=== PATIENT | male | born 1960 | race Caucasian/White ===

== ENCOUNTER 2018-11-30 11:24 | Inpatient (IN) ==
--- NOTE | 2018-11-30 11:43 | Emergency Department Note ---
Entered by Adriana Thorpe acting as a scribe for Randy Moore MD History of Present Illness General Chief complaint: Weakness Stated complaint: weakness Time Seen by Provider: 11/30/18 11:35 Source: patient History of Present Illness Provider complaint: weakness Onset (ago): day(s) (several days) Location: head Severity: similar to prior episodes Pain Consistency: + other (+persistent) Exacerbated By: + other (standing up) Associated symptoms: + nausea/vomiting and + other (+abdominal bloating, +diarrhea, +dark stool); no chest pain and no shortness of breath The patient is a 58 year old male who presents to the Emergency Room with complaints of persistent weakness for the past several days. He notes that prior to arrival he stood up and felt weak and dizzy. He notes that he drank one beer today and multiple energy drinks. He reports that he had episodes of nausea, vomiting, and diarrhea yesterday. He states that his last bowel movement was this morning and reports that he had dark stools. He reports that he felt bloated today, he denies any previous stomach issues. He denies any chest pain, headache, or shortness of breath. The patient states that standing up worsens his symptoms. He mentions that he is diabetic. Per the patients friend, the patient has a history of quadruple bypass. Home Medications Home Medications Medication Instructions Recorded Confirmed Type aspirin [Aspir-81] 81 mg PO DAILY 11/30/18 11/30/18 History linagliptin 5 mg PO DAILY 11/30/18 11/30/18 History lisinopril 10 mg PO DAILY 11/30/18 11/30/18 History metformin 1,000 mg PO BID 11/30/18 11/30/18 History metoprolol succinate 25 mg PO DAILY 11/30/18 11/30/18 History Allergies Allergy/AdvReac Type Severity Reaction Status Date / Time No Known Allergies Allergy Unverified 11/30/18 11:45 Past Med/Surg History Surgical History History of quadruple bypass (Acute) Family History Grandfather Myocardial infarction Father TIA (transient ischemic attack) Social History (Reviewed 11/30/18 @ 14:20 by Adriana Huertas Direct Customer Service Representative Required: No Beliefs That Will Affect Care: None Current Living Situation: Significant Other Feels Safe at Home: Yes Smoking Status: Former smoker Hx Alcohol Use: Yes Hx Substance Use: No Review of Systems See HPI for pertinent positives & negatives. and A total of 10 systems reviewed and were otherwise negative Physical Exam Vital Signs Vital Signs - 24 hr 11/30/18 11:30 11/30/18 11:32 11/30/18 11:35 Temperature 36.8 C Temperature Source Oral Sepsis Recent Fever Within 48 Hours No Sepsis New/Unexplained Change in Mental Status No Sepsis Action Taken by Nursing No Action Required Pulse Rate 90 91 H 91 H Pulse Rate from SpO2 Sensor 92 H 95 H Pulse Rhythm Regular Pulse Strength Normal Respiratory Rate 22 18 20 Respiratory Effort / Characteristics Non-Labored Spontaneous Respiratory Depth Normal Respiratory Pattern Regular Blood Pressure 97/60 L 102/60 Blood Pressure Mean 72 74 Blood Pressure Position Lying Pulse Oximetry 100 100 98 Oxygen Delivery Method Room Air Room Air Room Air 11/30/18 12:06 11/30/18 12:30 11/30/18 13:00 Temperature Temperature Source Sepsis Recent Fever Within 48 Hours Sepsis New/Unexplained Change in Mental Status Sepsis Action Taken by Nursing Pulse Rate 84 87 84 Pulse Rate from SpO2 Sensor 87 84 Pulse Rhythm Pulse Strength Respiratory Rate 25 H 18 16 Respiratory Effort / Characteristics Respiratory Depth Respiratory Pattern Blood Pressure 94/55 L Blood Pressure Mean 68 Blood Pressure Position Pulse Oximetry 99 99 Oxygen Delivery Method Room Air Room Air 11/30/18 13:30 11/30/18 14:00 Temperature Temperature Source Sepsis Recent Fever Within 48 Hours Sepsis New/Unexplained Change in Mental Status Sepsis Action Taken by Nursing Pulse Rate 85 89 Pulse Rate from SpO2 Sensor Pulse Rhythm Pulse Strength Respiratory Rate 21 19 Respiratory Effort / Characteristics Respiratory Depth Respiratory Pattern Blood Pressure 113/61 Blood Pressure Mean 78 Blood Pressure Position Pulse Oximetry 96 Oxygen Delivery Method Room Air General: Non-ill appearing middle-aged male in no acute distress. HEENT: Normal cephalic atraumatic. Pupils are equal round and reactive to light. Extraocular movements are intact. Oropharynx is pink with moist mucous membranes. No swelling of the mouth lips or tongue. Neck: Supple with a midline trachea. No meningeal signs or stiffness, no JVD or bruits. No Stridor. Chest: Clear to auscultation bilaterally. No wheezes or rhonchi. No increased work of breathing. Heart: regular rate and rhythm. Abdomen: Soft nontender, nondistended without rebound guarding or rigidity. Rectal: Normal external exam, melanotic stool which was guaiac positive. Extremities: No cyanosis clubbing or edema. No calf tenderness or asymmetry Spine/Back. Non tender to palpation. No CVA tenderness Skin: Good turgor without rashes. Neurologic exam: Cranial nerves two through 12 are intact. Motor and sensation are intact and symmetrical throughout. Course 1128: The patient was evaluated in room C9, and a complete history and physical examination were performed. 1228: I reevaluated the patient and updated him in his results, the patient appears comfortable. He states that he feels okay. The patient does not appear as pale, we are currently waiting on labs. 1249: I discussed the patient's case with Dr. Maggie Rose- [facility] Hospitalist, she will accept the patient for further evaluation. 1255: I reevaluated the patient, he consented for blood transfusion. Administered Medications Discontinued Medications Sodium Chloride (Nss 1000ml) 1,000 mls @ 999 mls/hr IV .[id number] JAXSON Stop: 11/30/18 12:45 Last Infusion: 11/30/18 12:48 Dose: 0 mls/hr Documented by: [id number] Admin: 11/30/18 11:47 Dose: 999 mls/hr Documented by: [id number] Pantoprazole Sodium 80 mg/ (Dextrose) 120 mls @ 480 mls/hr IV TODAY@1245 JAXSON Stop: 11/30/18 12:59 Last Infusion: 11/30/18 13:16 Dose: 0 mls/hr Documented by: [id number] Admin: 11/30/18 13:01 Dose: 480 mls/hr Documented by: [id number] Pantoprazole Sodium 40 mg/ (Dextrose) 100 mls @ 20 mls/hr IV Q5H JAXSON Stop: 11/30/18 17:59 Last Infusion: 11/30/18 15:38 Dose: 0 mls/hr Documented by: [id number] Admin: 11/30/18 13:18 Dose: 20 mls/hr Documented by: [id number] Magnesium Sulfate/Dextrose (Magnesium Sulfate / D5w) 1 gm in 100 mls @ 100 mls/hr IV Q1H JAXSON Stop: 11/30/18 14:29 Last Infusion: 11/30/18 15:14 Dose: 0 mls/hr Documented by: [id number] Admin: 11/30/18 14:10 Dose: 100 mls/hr Documented by: [id number] Infusion: 11/30/18 14:02 Dose: 0 mls/hr Documented by: [id number] Admin: 11/30/18 13:02 Dose: 100 mls/hr Documented by: [id number] Medical Decision Making Differential Diagnosis Differential diagnoses include, but are not limited to dizziness, GI bleed, cardiac disease, arrhythmia, electrolyte and metabolic abnormality, and intoxication. Medical Records Attestation: I reviewed the patient's medical records. Home Medications Current Medication List: was personally reviewed by me Laboratory Data Attestation: I reviewed the patient's lab results. Result diagrams: 11/30/18 11:35 11/30/18 11:35 Lab Results 11/30/18 11/30/18 11/30/18 Range/Units 11:35 11:35 11:35 WBC 7.95 (4.8-10.8) K/uL RBC 2.51 L (4.7-6.1) M/uL Hgb 7.7 L (14.0-18.0) g/dL Hct 23.5 L (42-52) % MCV 93.6 (80-100) fL MCH 30.7 (25-34) pg MCHC 32.8 (32-36) g/dL RDW Std Deviation 46.2 (36.4-46.3) fL RDW Coeff of Anthony 13.5 (11.5-14.5) % Plt Count 76 L (130-400) K/uL MPV 12.9 H (7.4-10.4) fL Immature Gran % (Auto) 0.3 % Neut % (Auto) 71.8 % Lymph % (Auto) 17.0 % [place] % (Auto) 9.9 % Eos % (Auto) 0.6 % Baso % (Auto) 0.4 % Immature Gran # (Auto) 0.02 (0.00-0.02) K/uL Neut # (Auto) 5.71 (1.4-6.5) K/uL Lymph # (Auto) 1.35 (1.2-3.4) K/uL [place] # (Auto) 0.79 H (0.11-0.59) K/uL Eos # (Auto) 0.05 (0-0.5) K/uL Baso # (Auto) 0.03 (0-0.2) K/uL Platelet Estimate Decreased L (Normal) PT Cancelled INR Cancelled APTT Cancelled PTT Ratio Cancelled Sodium 143 (136-145) mmol/L Potassium 4.1 (3.5-5.1) mmol/L Chloride 110 H (98-107) mmol/L Carbon Dioxide 22 (21-32) mmol/L Anion Gap 11.0 (3-11) BUN 59 H (7-18) mg/dl Creatinine 1.21 (0.6-1.4) mg/dl Est Cr Clr Drug Dosing 67.9 ml/min Est GFR ( Amer) 75.5 Est GFR (Non-Af Amer) 65.1 BUN/Creatinine Ratio 48.7 H (10-20) Glucose 283 H (70-99) mg/dl Calcium 8.9 (8.5-10.1) mg/dl Magnesium 1.4 L (1.8-2.4) mg/dl Total Bilirubin 0.6 (0.2-1) mg/dl AST 32 (15-37) U/L ALT 16 (12-78) U/L Alkaline Phosphatase 88 (45-117) U/L Troponin I < 0.015 (0-0.045) ng/ml Total Protein 5.9 L (6.4-8.2) gm/dl Albumin 2.6 L (3.4-5.0) gm/dl Globulin 3.2 (2.5-4.0) gm/dl Albumin/Globulin Ratio 0.8 L (0.9-2) TSH 1.560 (0.300-4.500) uIu/ml Ethyl Alcohol mg/dL (0-3) mg/dl Blood Type Blood Type Recheck Antibody Screen Crossmatch 11/30/18 11/30/18 11/30/18 Range/Units 11:40 11:49 12:38 WBC (4.8-10.8) K/uL RBC (4.7-6.1) M/uL Hgb (14.0-18.0) g/dL Hct (42-52) % MCV (80-100) fL MCH (25-34) pg MCHC (32-36) g/dL RDW Std Deviation (36.4-46.3) fL RDW Coeff of Anthony (11.5-14.5) % Plt Count (130-400) K/uL MPV (7.4-10.4) fL Immature Gran % (Auto) % Neut % (Auto) % Lymph % (Auto) % [place] % (Auto) % Eos % (Auto) % Baso % (Auto) % Immature Gran # (Auto) (0.00-0.02) K/uL Neut # (Auto) (1.4-6.5) K/uL Lymph # (Auto) (1.2-3.4) K/uL [place] # (Auto) (0.11-0.59) K/uL Eos # (Auto) (0-0.5) K/uL Baso # (Auto) (0-0.2) K/uL Platelet Estimate (Normal) PT 13.6 H INR 1.4 H APTT 25.9 PTT Ratio 1.0 Sodium (136-145) mmol/L Potassium (3.5-5.1) mmol/L Chloride (98-107) mmol/L Carbon Dioxide (21-32) mmol/L Anion Gap (3-11) BUN (7-18) mg/dl Creatinine (0.6-1.4) mg/dl Est Cr Clr Drug Dosing ml/min Est GFR ( Amer) Est GFR (Non-Af Amer) BUN/Creatinine Ratio (10-20) Glucose (70-99) mg/dl Calcium (8.5-10.1) mg/dl Magnesium (1.8-2.4) mg/dl Total Bilirubin (0.2-1) mg/dl AST (15-37) U/L ALT (12-78) U/L Alkaline Phosphatase (45-117) U/L Troponin I (0-0.045) ng/ml Total Protein (6.4-8.2) gm/dl Albumin (3.4-5.0) gm/dl Globulin (2.5-4.0) gm/dl Albumin/Globulin Ratio (0.9-2) TSH (0.300-4.500) uIu/ml Ethyl Alcohol mg/dL < 3.0 (0-3) mg/dl Blood Type O Positive Blood Type Recheck Antibody Screen NEGATIVE Crossmatch See Detail 11/30/18 Range/Units 14:07 WBC (4.8-10.8) K/uL RBC (4.7-6.1) M/uL Hgb (14.0-18.0) g/dL Hct (42-52) % MCV (80-100) fL MCH (25-34) pg MCHC (32-36) g/dL RDW Std Deviation (36.4-46.3) fL RDW Coeff of Anthony (11.5-14.5) % Plt Count (130-400) K/uL MPV (7.4-10.4) fL Immature Gran % (Auto) % Neut % (Auto) % Lymph % (Auto) % [place] % (Auto) % Eos % (Auto) % Baso % (Auto) % Immature Gran # (Auto) (0.00-0.02) K/uL Neut # (Auto) (1.4-6.5) K/uL Lymph # (Auto) (1.2-3.4) K/uL [place] # (Auto) (0.11-0.59) K/uL Eos # (Auto) (0-0.5) K/uL Baso # (Auto) (0-0.2) K/uL Platelet Estimate (Normal) PT INR APTT PTT Ratio Sodium (136-145) mmol/L Potassium (3.5-5.1) mmol/L Chloride (98-107) mmol/L Carbon Dioxide (21-32) mmol/L Anion Gap (3-11) BUN (7-18) mg/dl Creatinine (0.6-1.4) mg/dl Est Cr Clr Drug Dosing ml/min Est GFR ( Amer) Est GFR (Non-Af Amer) BUN/Creatinine Ratio (10-20) Glucose (70-99) mg/dl Calcium (8.5-10.1) mg/dl Magnesium (1.8-2.4) mg/dl Total Bilirubin (0.2-1) mg/dl AST (15-37) U/L ALT (12-78) U/L Alkaline Phosphatase (45-117) U/L Troponin I (0-0.045) ng/ml Total Protein (6.4-8.2) gm/dl Albumin (3.4-5.0) gm/dl Globulin (2.5-4.0) gm/dl Albumin/Globulin Ratio (0.9-2) TSH (0.300-4.500) uIu/ml Ethyl Alcohol mg/dL (0-3) mg/dl Blood Type Blood Type Recheck O Positive Antibody Screen Crossmatch Imaging Data Radiologist's Impression: Radiology results as stated below per my review and the radiologist's interpretation: XR chest 1V portable CLINICAL HISTORY: 58 years-old Male presenting with weakness. TECHNIQUE: Portable upright AP view of the chest was obtained. COMPARISON: None. FINDINGS: Median sternotomy wires and scattered mediastinal surgical clips. Atherosclerosis of the aortic arch. Top normal cardiac size. No focal opacity. No large effusion or pneumothorax. Osseous structures normal. Upper abdomen normal. IMPRESSION: 1. No acute cardiopulmonary disease. Electronically signed by: Mateo Awad M.D. 11/30/2018 12:[address] head/brain wo con CLINICAL HISTORY: 58 years-old Male presenting with syncope. TECHNIQUE: Multidetector CT imaging of the head was performed without the use of intravenous contrast. IV contrast: None. One or more dose lowering techniques were used consistent with the principles of ALARA (as low as reasonably achievable), including automatic exposure control, mA or kV adjustment to individual patient size, and/or use of iterative reconstruction. COMPARISON: None. CT DOSE (mGy.cm): The estimated cumulative dose is 537.48 mGy.cm. FINDINGS: Director [employer] topogram: Unremarkable. Ventricles and sulci normal in size. Hyperdensity in the left caudate head. This would be an atypical location for calcification in the absence of other basal ganglia calcifications and given the asymmetry. Periventricular and subcortical white matter hypoattenuation, nonspecific but likely indicative of chronic small vessel ischemic change.d No acute territorial infarct. No mass effect or midline shift. No extra-axial fluid collection. Paranasal sinuses and mastoid air cells clear. Calvarium intact. IMPRESSION: 1. Indeterminate hyperdensity in the left caudate head notably asymmetric to the right and without accompanying basal ganglia calcifications. This is an atypical site of senescent calcification, and the patient's younger age may argue against this etiology. The favored differential consideration is intraparenchymal hemorrhage. Recommend noncontrast MR brain for potentially better delineation if this truly represents hemorrhage. The report will be called/faxed according to standard departmental protocol for a critical finding. Electronically signed by: Mateo Awad M.D. 11/30/2018 12:13 PM ECG Data Attestation: I personally reviewed and interpreted this ECG as follows: Indication: weakness Rate (beats per minute): 87 Rhythm: normal sinus Findings: + other (non-specific T wave abnormality) and + nonspecific-ST abn Comparison ECG Date: no prior available Blood Pressure Blood Pressure Findings: Normal blood pressure Blood Pressure Disposition: did not require urgent referral MDM Narrative This patient comes in after being sent over from the football game after complaining of feeling weakness with standing. He says he is felt off for couple days. he had nausea vomiting diarrhea yesterday feels a stool may have been dark. He believes that he is on a blood thinner but does not know which o ne he says it is not Coumadin. He denies any chest pain or shortness of breath. He has no focal numbness weakness on exam, he did drink one beer today. There is been no trauma or injury. He does have a complex medical history with diabetes and cardiac disease with a bypass. I did a rectal exam and he did have melanotic stool which was guaiac positive. He was typed and screened. His hemoglobin came back at 7.7. I consented him for blood product transfusion he agreed. I talked to him for a long time and clearly explained the risks and benefits. I do think he definitely needs a transfusion given his low number and his symptoms. EKG does not suggest any definite ischemic changes. Chest x-ray is unremarkable. He has a small hyperdensity on his CT of his head which I think is most likely artifactual but it could be a small punctate hemorrhage it does not seem to fit with his symptoms. Dr. Rose is going to order an MRI to further clarify this. The patient did receive IV Protonix bolus and drip for his GI bleed given the fact that his melanotic is most likely upper. He is also found to be hypomagnesia make and was given 2 g of magnesium IV. He was reassessed frequently and has improved his hemodynamics he seems to be doing better and is getting a blood transfusion. He will be admitted for further treatment and evaluation. Impression & Plan GI (gastrointestinal bleed), Dizziness, Hypomagnesemia, Hx of CABG, Abnormal CT of the head, DM type 2 (diabetes mellitus, type 2) Critical Care Time Critical Care Time: Yes Due to the patient's hypotension and GI bleed and need for frequent reassessment, as well as need for other IV medications including IV Protonix and IV magnesium as well as frequent monitoring, I have personally spent greater than 45 minutes of critical care time in the direct management of this patient. This includes bedside care, interpretation of diagnostic studies, and testing, discussion with consultants, patient, and family members, and other required patient management activities. This 45 minutes is in excess of all separately billable procedures. Discharge Plan Visit Data *Final* Discharge Date/Time: 11/30/18 14:42 Chief Complaint: Weakness Stated Complaint: weakness ED Provider: Randy Moore Discharge Problem: GI (gastrointestinal bleed), Dizziness, Hypomagnesemia, Hx of CABG, Abnormal CT of the head, DM type 2 (diabetes mellitus, type 2) Patient Disposition: Admitted As Inpatient Discharge Instructions Interventions: ED Discharge Assessment Last Done: 11/30/18 14:42 Discharge Problem: GI (gastrointestinal bleed) Qualifiers: GI bleed type/associated pathology: melena Qualified Code(s): K92.1 - Melena DM type 2 (diabetes mellitus, type 2) 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 I confirm that the note above accurately reflects all work, treatment, procedures, and medical decision making performed by me.
[2018-11-30] MEDS ORDERED: SODIUM CHLORIDE 0.9% 1000ML 1,000 ML IV SCH (11:45)
--- NOTE | 2018-11-30 12:15 | CT Scan Report ---
CT head/brain wo con CLINICAL HISTORY: 58 years-old Male presenting with syncope. TECHNIQUE: Multidetector CT imaging of the head was performed without the use of intravenous contrast . IV contrast: None. One or more dose lowering techniques were used consistent with the principles of ALARA (as low as reasonably achievable), including automatic exposure control, mA or kV adjustment t o individual patient size, and/or use of iterative reconstruction. COMPARISON: None. CT DOSE (mGy.cm): The estimated cumulative dose is 537.48 mGy.cm. FINDINGS: Bar Assistant topogram: Unremarkable. Ventricles and sulci normal in size. Hyperdensity in the left caudate head. This would be an atypical location for calcification in the absence of other basal ganglia calcifications and given the asymme try. Periventricular and subcortical white matter hypoattenuation, nonspecific but likely indicative of chronic small vessel ischemic change.d No acute territorial infarct. No mass effect or midline christy ft. No extra-axial fluid collection. Paranasal sinuses and mastoid air cells clear. Calvarium intact. IMPRESSION: 1. Indeterminate hyperdensity in the left caudate head notably asymmetric to the right and without a ccompanying basal ganglia calcifications. This is an atypical site of senescent calcification, and th e patient's younger age may argue against this etiology. The favored differential consideration is in traparenchymal hemorrhage. Recommend noncontrast MR brain for potentially better delineation if this truly represents hemorrhage. The report will be called/faxed according to standard departmental protocol for a critical finding. Electronically signed by: Mateo Awad M.D. 11/30/2018 12:13 PM
--- NOTE | 2018-11-30 12:25 | XRay Report ---
XR chest 1V portable CLINICAL HISTORY: 58 years-old Male presenting with weakness. TECHNIQUE: Portable upright AP view of the chest was obtained. COMPARISON: None. FINDINGS: Median sternotomy wires and scattered mediastinal surgical clips. Atherosclerosis of the aortic arch. Top normal cardiac size. No focal opacity. No large effusion or pneumothorax. Osseous structures nor mal. Upper abdomen normal. IMPRESSION: 1. No acute cardiopulmonary disease. Electronically signed by: Mateo Awad M.D. 11/30/2018 12:23 PM
[2018-11-30 12:29] LABS: Alanine Aminotransferase 16 U/L (12-78); Albumin Level 2.6 gm/dl (3.4-5.0); Aspartate Aminotransferase 32 U/L (15-37); BUN Creatinine Ratio 48.7 (10-20); Blood Urea Nitrogen 59 mg/dl (7-18); Calcium 8.9 mg/dl (8.5-10.1); Carbon Dioxide 22 mmol/L (21-32); Chloride 110 mmol/L (98-107); Creatinine Clr Calc Pharmacy 67.9 ml/min; Est GFR (African American) 75.5; Est GFR (Non-African American) 65.1; Glucose 283 mg/dl (70-99); Magnesium 1.4 mg/dl (1.8-2.4); Potassium 4.1 mmol/L (3.5-5.1); Sodium 143 mmol/L (136-145)
[2018-11-30 12:40] LABS: Albumin Globulin Ratio 0.8 (0.9-2); Alkaline Phosphatase 88 U/L (45-117); Bilirubin,Total 0.6 mg/dl (0.2-1); Globulin 3.2 gm/dl (2.5-4.0); Total Protein 5.9 gm/dl (6.4-8.2); Troponin I < 0.015 ng/ml (0-0.045)
[2018-11-30 12:43] LABS: Basophils # (auto) 0.03 K/uL (0-0.2); Basophils % (auto) 0.4 %; Eosinophils # (auto) 0.05 K/uL (0-0.5); Eosinophils % (auto) 0.6 %; Hematocrit (blood only) 23.5 % (42-52); Hemoglobin 7.7 g/dL (14.0-18.0); Immature Granulocytes # (auto) 0.02 K/uL (0.00-0.02); Immature Granulocytes % (auto) 0.3 %; Lymphocytes # (auto) 1.35 K/uL (1.2-3.4); Mean Corpuscular Hgb Conc 32.8 g/dL (32-36); Mean Corpuscular Volume 93.6 fL (80-100); Mean Platelet Volume 12.9 fL (7.4-10.4); Monocytes # (auto) 0.79 K/uL (0.11-0.59); Monocytes % (auto) 9.9 %; Neutrophils # (auto) 5.71 K/uL (1.4-6.5); Neutrophils % (auto) 71.8 %; Platelet Count 76 K/uL (130-400); Platelet Estimate Decreased (Normal); RDW Coefficient of Variation 13.5 % (11.5-14.5); RDW Standard Deviation 46.2 fL (36.4-46.3); Red Blood Count 2.51 M/uL (4.7-6.1); White Blood Count 7.95 K/uL (4.8-10.8)
[2018-11-30] MEDS ORDERED: PANTOprazole 80 MG in DEXTROSE 5% 100 ML IV SCH (12:45)
[2018-11-30] MEDS ORDERED: SODIUM CHLORIDE 0.9% 250 ML IV PRN ×2 (12:55→13:21)
[2018-11-30 13:00] LABS: INR 1.4 (0.9-1.1); Partial Thromboplastin Time 25.9 Seconds (21.0-31.0); Prothrombin Time 13.6 Seconds (9.0-12.0)
[2018-11-30] MEDS ORDERED: PANTOprazole 40 MG in DEXTROSE 5% 100 ML IV SCH (13:00)
[2018-11-30] MEDS: MAGNESIUM SULFATE / D5W 1 GM/100 ML BAG IV SCH ×2 (13:02→14:10)
--- NOTE | 2018-11-30 14:23 | History & Physical Report ---
Date of Service November 30, 2018 Assessment & Plan (1) GIB (gastrointestinal bleeding): Heme + in the ED Hb 7.7 on admission, monitor Awaiting transfusion Protonix, IVF GI c/s pending Hx of c-scope with outside providers, HIM requested (2) Hypomagnesemia: Replaced in the ED, monitor (3) Abnormal CT of the head: As noted MRI pending (4) HTN (hypertension): HypoTN in the ED, holding home meds (5) DM type 2 (diabetes mellitus, type 2): PO home meds only, holding for now SSI PRN A1c pending (6) Hx of CABG: Hx of aspirin 81mg only Holding for now (7) DVT prophylaxis: SCDs given above History of Present Illness Primary Care Provider: NO PCP 58 y/o M c/o weakness. Pt states that he was weak and lightheaded yesterday a few times, but it resolved. He also had a few episodes of n/v yesterday. He came to [place] today for the [employer] game. As they were walking into the field he suddenly felt much more weak and lightheaded and states that the grass "turned orange". He could not keep his head up and could not continue walking. When this did not clear, he came to the ED. Pt states he had a bowel movement yesterday and today with dark black stools. He had no noticed this prior. It was a regular, formed stool. No diarrha. He has not had abd pain, but he does feel bloated today. He states that his abd is usually fairly flat. He has no prior hx of similar sx. No BRBPR or in his emesis yesterday.Pt denies fever, SOB, chest pain, LE pain or swelling. Pt takes aspirin 81mg regularly due to hx of CABG 5 yrs ago. He states he did hold this a few weeks ago due to recurring nosebleeds and had just restarted this recently after the nosebleeds resolved. No unusual bruising or bleeding otherwise. Pt states he does feel a bit improved s/p IVF and protonix, Mg in the ED. He is awaiting PRBC transfusion. Pt states he has had 2-3 c-scopes. He was noted to have polyps on his initial c- scope and so has had an increased interval for screening. No dx of cancer. His last one was roughly 2 years ago. 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 Allergies Allergy/AdvReac Type Severity Reaction Status Date / Time No Known Allergies Allergy Unverified 11/30/18 11:45 Home Medications Home Medications Medication Instructions Recorded Confirmed Type aspirin [Aspir-81] 81 mg PO DAILY 11/30/18 11/30/18 History linagliptin 5 mg PO DAILY 11/30/18 11/30/18 History lisinopril 10 mg PO DAILY 11/30/18 11/30/18 History metformin 1,000 mg PO BID 11/30/18 11/30/18 History metoprolol succinate 25 mg PO DAILY 11/30/18 11/30/18 History Past Med/Surg History Surgical History History of quadruple bypass (Acute) Family History Grandfather Myocardial infarction Father TIA (transient ischemic attack) Social History Feels Safe at Home: Yes Smoking Status: Former smoker Number of Years Since Quit: 5 ; Hx Alcohol Use: Yes (2-3 beers a 1-2 nights a week) Hx Substance Use: No Review of Systems Review of Systems: Pertinent positives and negatives reviewed in HPI--all others negative Physical Exam Constitutional: WD/WN, vitals as above Eyes: normal visual richardson by confrontation and + anicteric sclerae Neck: normal visual inspection and trachea midline Respiratory: normal respiratory effort, lungs clear to auscultation Cardiovascular: Rate/Rhythm: regular rate and regular rhythm Gastrointestinal (Abdomen): Inspection/Auscultation: abdomen not distended Percussion/Palpation: abdomen soft; abdomen nontender Musculoskeletal: Head/Neck/Chest: normocephalic and head atraumatic negative for edema, peripheral pulses intact Skin: no rashes, warm and dry + pallor Neurologic: awake; not confused Speech / Cognition: normal speech Psychiatric: A+Ox3, euthymic affect Results & Data Vital Signs (Past 12 Hours) Vital Signs Temp Pulse Resp BP Pulse Ox 11/30/18 13:00 84 16 99 11/30/18 12:30 87 18 94/55 L 99 11/30/18 12:06 84 25 H 11/30/18 11:35 36.8 C 91 H 20 102/60 98 11/30/18 11:32 91 H 18 100 11/30/18 11:30 90 22 97/60 L 100 Diagnostic Findings CXR: neg for acute CT head: ?? intraparenchymal hemorrhage, recs for MRI Code Status & VTE Plan Code Status Full code VTE Prophylaxis Plan VTE Prophylaxis will be ordered: Yes PG Care Time/CCT Total # of Minutes Spent Total Time Spent with Patient: Total time spent is greater than 50% in coordination of care (as documented) at patient's floor/unit and/or counseling patient:
[2018-11-30] MEDS ORDERED: DEXTROSE 50% 50 ML SYRINGE IV PRN (15:12)
[2018-11-30] MEDS ORDERED: GLUCAGON FOR INJ 1 MG VIAL SQ PRN (15:12)
[2018-11-30] MEDS ORDERED: ONDANSETRON INJ 2 MG/ML 2 ML VIAL IV PRN (15:12)
[2018-11-30] MEDS ORDERED: GLUCOSE 40% GEL 15 GM TUBE PO PRN (15:12)
[2018-11-30] MEDS ORDERED: CARBOHYDRATES FOR HYPOGLYCEMIA PO PRN (15:12)
[2018-11-30] MEDS ORDERED: GLUCOSE 10 TABS/TUBE PO PRN (15:12)
[2018-11-30] MEDS ORDERED: ACETAMINOPHEN 325 MG TAB PO PRN (15:12)
[2018-11-30] MEDS ORDERED: MAGNESIUM HYDROXIDE SUSP 30 ML UDC PO PRN (15:12)
[2018-11-30] MEDS: SODIUM CHLORIDE 0.45 % 1,000 ML IV SCH (17:58)
[2018-11-30] MEDS: INSULIN ASPART 100 UNITS/ML 3 ML PEN SC SCH (18:04)
--- NOTE | 2018-11-30 19:16 | Magnetic Resonance Report ---
MR brain wo con CLINICAL HISTORY: 58 years-old Male presenting with abn CT, dizziness, weakness, vision changes. TECHNIQUE: Multisequence, multiplanar MR imaging of the brain was performed without the use of intrav enous contrast. IV contrast: None. COMPARISON: None. FINDINGS: Localizer images: Unremarkable. Bone marrow signal intensity within the calvarium within normal limits. Normal midline sagittal structures. Ventricles and sulci normal in size. No mass effect or midline sh ift. No restricted diffusion or hemorrhage. Scattered foci of periventricular and subcortical white m atter T2/FLAIR hyperintensity, nonspecific. No extra-axial fluid collection. T2 skull base flow voids preserved. IMPRESSION: 1. Scattered foci of periventricular and subcortical white matter T2/FLAIR hyperintensity, nonspecif ic. This could be seen in the setting of chronic small vessel ischemic change, demyelinating disease, and other etiologies. Electronically signed by: Mateo Awad M.D. 11/30/2018 7:13 PM
[2018-11-30 19:33] LABS: Hematocrit (blood only) 27.8 % (42-52); Hemoglobin 9.2 g/dL (14.0-18.0)
[2018-11-30 20:21] LABS: Appearance Urine Clear (Clear); Bilirubin Urine Negative (Negative); Blood Urine Negative (Negative); Color Urine Yellow; Glucose Urine UA 3+ (Negative); Ketones Urine Trace (Negative); Leukocyte Esterase Urine Negative (Negative); Nitrite Urine Negative (Negative); Protein Urine Negative (Negative); Specific Gravity Urine 1.023 (1.000-1.030); Urobilinogen Urine Negative (Negative); pH Urine 5.5 (4.5-7.5)
[2018-11-30] MEDS: PANTOprazole 40 MG in SYRINGE 0 ML IV SCH (20:34)
[2018-12-01] MEDS: INSULIN ASPART 100 UNITS/ML 3 ML PEN SC SCH ×5 (00:59→23:58)
[2018-12-01] MEDS: SODIUM CHLORIDE 0.45 % 1,000 ML IV SCH ×4 (02:38→19:54)
[2018-12-01 06:55] LABS: Basophils # (auto) 0.02 K/uL (0-0.2); Basophils % (auto) 0.3 %; Eosinophils # (auto) 0.14 K/uL (0-0.5); Eosinophils % (auto) 2.4 %; Hematocrit (blood only) 23.4 % (42-52); Hemoglobin 7.9 g/dL (14.0-18.0); Immature Granulocytes # (auto) 0.01 K/uL (0.00-0.02); Immature Granulocytes % (auto) 0.2 %; Lymphocytes # (auto) 1.46 K/uL (1.2-3.4); Lymphocytes % (auto) 25.4 %; Mean Corpuscular Hgb Conc 33.8 g/dL (32-36); Mean Corpuscular Volume 89.3 fL (80-100); Mean Platelet Volume 12.3 fL (7.4-10.4); Monocytes # (auto) 0.56 K/uL (0.11-0.59); Monocytes % (auto) 9.8 %; Neutrophils # (auto) 3.55 K/uL (1.4-6.5); Neutrophils % (auto) 61.9 %; Platelet Count 58 K/uL (130-400); RDW Coefficient of Variation 14.8 % (11.5-14.5); RDW Standard Deviation 48.4 fL (36.4-46.3); Red Blood Count 2.62 M/uL (4.7-6.1); White Blood Count 5.74 K/uL (4.8-10.8)
[2018-12-01 07:29] LABS: BUN Creatinine Ratio 39.2 (10-20); Calcium 7.6 mg/dl (8.5-10.1); Creatinine Clr Calc Pharmacy 94.4 ml/min; Est GFR (African American) 109.5; Est GFR (Non-African American) 94.5; Magnesium 1.5 mg/dl (1.8-2.4); Phosphorus 2.4 mg/dl (2.5-4.9); Potassium 3.8 mmol/L (3.5-5.1)
[2018-12-01] MEDS: PANTOprazole 40 MG in SYRINGE 0 ML IV SCH ×2 (08:06→19:54)
[2018-12-01] MEDS: MAGNESIUM SULFATE / D5W 1 GM/100 ML BAG IV SCH ×2 (09:54→10:49)
[2018-12-01 12:38] LABS: Hematocrit (blood only) 24.6 % (42-52); Hemoglobin 8.3 g/dL (14.0-18.0)
--- NOTE | 2018-12-01 13:02 | Family Medicine Progress Note ---
Date of Service December 01, 2018 Assessment & Plan (1) GI (gastrointestinal bleed): Patient is a 58 year old male with PMHx DM2, HTN, and CABG x5 presenting initially with weakness and dizziness. Gastrointestinal Bleed -DHARMESH in ED revealed Melanotic stool that was Heme + -Hemoglobin on admission was 7.7 and patient was severely symptomatic with weakness and dizziness -Pt was transfused 1 unit of PRBC in the ED and noted vast improvement in symptoms. -Repeat Hgb was 9.2. -Hgb this AM was 7.9, patient currently asymptomatic. H&H ordered for noon today - 8.3, continue to monitor. -Pantoprazole 40mg BID IV for gastroprotection since bleed is suspected. -GI Consulted, appreciate recs. Hypomagnesemia -Patient initially presented with Mag 1.4 in ED, was given 2g in ED. -Mag this AM is 1.5 -Another 2g of Mag ordered for this AM, will continue to monitor. DM2 -Patient takes Linagliptin and Metformin at home -Will hold medications since NPO -Sliding Scale for management. HTN -Patient takes Lisinopril and Metformin at home -Currently on hold due to patient's soft pressures since admission. Dizziness -Likely secondary to Anemia on initial presentation -Currently resolved after receiving 1 unit of PRBC and IVF. Abnormal CT of the Head -CT scan w/o in ED showed a questionable Intraparenchymal hemorrhage which did not correlate with patient's symptoms. -MRI was ordered to r/o hemorrhage - Unremarkable for current hemorrhage. Hx of CABG -Patient notes history of a Quintuple Bypass roughly 5 years ago. -Currently holding ASA 81mg secondary to ?GI bleed. FEN/GI - 1/2 NSS, NPO DVT - SCD Code - Full (2) Hypomagnesemia: (3) DM type 2 (diabetes mellitus, type 2): (4) HTN (hypertension): (5) Dizziness: (6) Abnormal CT of the head: (7) Hx of CABG: Supervising Physician Co-Signing Physician Notes I saw the patient independent the resident physician and confirmed cage portions of the history and physical exam. I agree with the impression and plan as noted above with the following additions. 58-year-old male admitted yesterday with dizziness and near syncope found to be anemic with signs of upper gastrointestinal bleed. Patient states that he has recently been taking NSAIDs for orthopedic complaints. At present, he feels generally well. He is not dizzy or lightheaded when lying in bed. He has not had a bowel movement since his admission. He was transfused upon admission; hemoglobin presently stable at 8.3 He is mildly hypotensive and his home antihypertensives are on hold. PLAN 1) n.p.o. after midnight for EGD tomorrow 2) monitor H&H every 12 hours 3) IV Protonix 4) glycemic consult Subjective Patient is a 58 year old male with PMHx DM2, HTN, and CABG x5 who initially presented to the ED with complaints of profound weakness. He notes that yesterday he was feeling lightheaded, especially after getting out of his car. He had come up from [place] to see the [employer] game and states that while walking from his car to the field he felt weaker and more light headed than he had ever before. He does note having a subjective history of orthostatic hypotension, but has never been formally diagnosed. He also states that yesterday when he had a bowel movement it was dark black stools that he had not noticed in the past. Patient states he was evaluated in the ED and given 1 unit of blood and fluids which he states greatly improved his weakness and lightheadedness. Patient is currently laying comfortable in bed, alert, and asymptomatic. He states that he is feeling significantly better than he did yesterday. Review of Systems Constitutional: no fever, no chills, no sweats, no body aches, no fatigue and no weakness Eyes: no eye pain, no tunnel vision and no worsening vision Ear, Nose, Mouth, Throat: no ear pain, no tinnitus and no dizziness Respiratory: no cough, no chest congestion, no dyspnea, no dyspnea on exertion and no pain on inspiration Cardiovascular: no chest pain, no chest pain at rest, no radiating jaw, neck or arm pain, no dyspnea, no dyspnea at rest, no dyspnea on exertion, no palpitations, no edema and no calf pain Gastrointestinal: no abdominal pain, no bloating, no nausea and no vomiting Genitourinary: no dysuria, no difficulty urinating, no decreased urination, no hematuria and no flank pain Integumentary: no rash Neurologic: no generalized weakness and no dizziness Physical Exam Constitutional: WD/WN, vitals as above Eyes: PERRL, conjunctivae normal, anicteric sclerae normal visual richardson by confrontation ENMT: external ear and nose normal, oropharynx normal Neck: trachea midline, no thyromegaly normal visual inspection Respiratory: normal respiratory effort, lungs clear to auscultation Cardiovascular: Rate/Rhythm: regular rate and regular rhythm Heart Sounds: normal S1, normal S2 and + murmur (Grade 2/6) Vessels: posterior tibial pulses present, dorsalis pedis pulses present, radial pulses present and ulnar pulses present Extremities: normal capillary refill; no calf tenderness and no edema Gastrointestinal (Abdomen): normal bowel sounds, soft, nontender, no hepatosplenomegaly Skin: no rashes, warm and dry Neurologic: moves all extremities and awake; not confused and not obtunded Speech / Cognition: normal speech Psychiatric: A+Ox3, euthymic affect Results & Data Vital Signs (Past 12 Hours) Vital Signs Temp Pulse Pulse Resp BP BP Pulse Ox 12/01/18 11:48 91/53 L 12/01/18 11:44 36.6 C 76 18 87/53 L 97 12/01/18 08:12 36.7 C 76 16 96/50 L 98 12/01/18 08:00 81 12/01/18 04:23 36.7 C 79 19 91/52 L 97 Laboratory Results Abnormal lab results 11/30/18 11/30/18 11/30/18 Range/Units 11:40 18:01 19:15 RBC (4.7-6.1) M/uL Hgb 9.2 L (14.0-18.0) g/dL Hct 27.8 L (42-52) % RDW Std Deviation (36.4-46.3) fL RDW Coeff of Anthony (11.5-14.5) % Plt Count (130-400) K/uL MPV (7.4-10.4) fL Chloride (98-107) mmol/L Carbon Dioxide (21-32) mmol/L BUN (7-18) mg/dl BUN/Creatinine Ratio (10-20) Glucose (70-99) mg/dl POC Glucose 232 H (70-99) Calcium (8.5-10.1) mg/dl Phosphorus (2.5-4.9) mg/dl Magnesium (1.8-2.4) mg/dl Urine Glucose (UA) (Negative) Urine Ketones (Negative) Crossmatch See Detail 11/30/18 12/01/18 12/01/18 Range/Units 20:00 00:40 06:05 RBC (4.7-6.1) M/uL Hgb (14.0-18.0) g/dL Hct (42-52) % RDW Std Deviation (36.4-46.3) fL RDW Coeff of Anthony (11.5-14.5) % Plt Count (130-400) K/uL MPV (7.4-10.4) fL Chloride (98-107) mmol/L Carbon Dioxide (21-32) mmol/L BUN (7-18) mg/dl BUN/Creatinine Ratio (10-20) Glucose (70-99) mg/dl POC Glucose 142 H 129 H (70-99) Calcium (8.5-10.1) mg/dl Phosphorus (2.5-4.9) mg/dl Magnesium (1.8-2.4) mg/dl Urine Glucose (UA) 3+ H (Negative) Urine Ketones Trace H (Negative) Crossmatch 12/01/18 12/01/18 12/01/18 Range/Units 06:13 06:13 11:42 RBC 2.62 L (4.7-6.1) M/uL Hgb 7.9 L (14.0-18.0) g/dL Hct 23.4 L (42-52) % RDW Std Deviation 48.4 H (36.4-46.3) fL RDW Coeff of Anthony 14.8 H (11.5-14.5) % Plt Count 58 L (130-400) K/uL MPV 12.3 H (7.4-10.4) fL Chloride 116 H (98-107) mmol/L Carbon Dioxide 20 L (21-32) mmol/L BUN 34 H (7-18) mg/dl BUN/Creatinine Ratio 39.2 H (10-20) Glucose 125 H (70-99) mg/dl POC Glucose 206 H (70-99) Calcium 7.6 L (8.5-10.1) mg/dl Phosphorus 2.4 L (2.5-4.9) mg/dl Magnesium 1.5 L (1.8-2.4) mg/dl Urine Glucose (UA) (Negative) Urine Ketones (Negative) Crossmatch 12/01/18 Range/Units 12:26 RBC (4.7-6.1) M/uL Hgb 8.3 L (14.0-18.0) g/dL Hct 24.6 L (42-52) % RDW Std Deviation (36.4-46.3) fL RDW Coeff of Anthony (11.5-14.5) % Plt Count (130-400) K/uL MPV (7.4-10.4) fL Chloride (98-107) mmol/L Carbon Dioxide (21-32) mmol/L BUN (7-18) mg/dl BUN/Creatinine Ratio (10-20) Glucose (70-99) mg/dl POC Glucose (70-99) Calcium (8.5-10.1) mg/dl Phosphorus (2.5-4.9) mg/dl Magnesium (1.8-2.4) mg/dl Urine Glucose (UA) (Negative) Urine Ketones (Negative) Crossmatch Medications Administered Current Inpatient Medications Acetaminophen (Tylenol) 650 mg PO Q4H PRN PRN Reason: Pain or Fever Stop: 12/30/18 15:11 Dextrose (Dextrose 50%) 25 - 50 ml IV UD PRN; Protocol PRN Reason: Hypoglycemia Protocol Stop: 12/30/18 15:11 Glucagon (Glucagen) 1 mg SQ UD PRN; Protocol PRN Reason: Hypoglycemia Protocol Stop: 12/30/18 15:11 Glucose (Glucose 40%) 15 - 30 gm PO UD PRN; Protocol PRN Reason: Hypoglycemia Protocol Stop: 12/30/18 15:11 Glucose (Dex4 Glucose) 4 - 8 tabs PO UD PRN; Protocol PRN Reason: Hypoglycemia Protocol Stop: 12/30/18 15:11 Sodium Chloride (Nss) 250 mls @ 15 mls/hr IV .[id number] PRN PRN Reason: For Transfusion Stop: 12/30/18 12:54 Sodium Chloride (Nss) 250 mls @ 15 mls/hr IV .[id number] PRN PRN Reason: For Transfusion Stop: 12/30/18 13:20 Sodium Chloride (1/2 Nss) 1,000 mls @ 120 mls/hr IV .[id number] JAXSON Stop: 12/30/18 15:29 Last Admin: 12/01/18 08:06 Dose: 120 mls/hr Documented by: Pantoprazole Sodium 40 mg/ (Syringe) 10 mls @ 5 mls/min IV BID@0900,2100 [facility] Stop: 12/30/18 20:59 Last Admin: 12/01/18 08:06 Dose: 5 mls/min Documented by: Insulin Aspart (Novolog Flexpen) 0 units SC Q6 JAXSON Stop: 12/30/18 17:59 Last Admin: 12/01/18 11:53 Dose: 2 units Documented by: Magnesium Hydroxide (Milk Of Magnesia) 30 ml PO Q12H PRN PRN Reason: Constipation Stop: 12/30/18 15:11 Miscellaneous (Carbohydrates For Hypoglycemia) 15 - 30 gm PO UD PRN PRN Reason: Hypoglycemia Treatment Stop: 12/30/18 15:11 Ondansetron HCl (Zofran) 4 mg IV Q6H PRN PRN Reason: Nausea Stop: 12/30/18 15:11 PG Care Time/CCT Total # of Minutes Spent Total Time Spent with Patient: Total time spent is greater than 50% in coordination of care (as documented) at patient's floor/unit and/or counseling patient: Resident Activity Tracking Resident Involvement: Resident Care Provided Care Provided: Adult Hospital Medicine (1) GI (gastrointestinal bleed) GI bleed type/associated pathology: melena Qualified Code(s): K92.1 - Melena (2) DM type 2 (diabetes mellitus, type 2) Diabetes mellitus complication status: without complication 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
--- NOTE | 2018-12-01 14:34 | Gastrointestinal Consultation ---
Date of Consultation December 01, 2018 Assessment & Plan (1) GI (gastrointestinal bleed): (2) NSAID long-term use: Continue Pantoprazole 8 mg/hr gtt. Clear liquid diet today NPO after midnight EGD in AM Transfuse PRN to maintain H/H around 8/24 History of Present Illness Reason for Consultation: GI Bleed Attending Physician: Maggie Rose DO History of Present Illness Kyle Willis presented to ther ER yesterday after experiencing lightheadedness and dizziness. Upon arrival to the ER, he was noted to have an H/H of 7.7 and 23.5. He states that he was recently having recurrent nosebleeds at home, which prompted him to stop his aspirin therapy which he takes daily for his history of CAD. He states that he did notice black stools during the time he was having these nosebleeds. He states that he most recently has been taking Ibuprofen daily secondary to some lower extremity pain, and he again has noted black stools. In the ER, he was started on PPI gtt, and he has received a transfusion of 1u of PRBC. His H/H has improved slightly, and at the time that I saw him, he was feeling much improved. He states that he has not had any BM's since his arrival, and the nursing staff reports that he has been hemodynamically stable. He currently denies any abdominal pain, nausea, vomiting, hematemesis, hematochezia, lightheadedness or dizziness. He states that he is thirsty, but has no further complaints. His last colonoscopy was in [place], and he states that he had "a few polyps," however, I do not have these records. Allergies Allergy/AdvReac Type Severity Reaction Status Date / Time No Known Allergies Allergy Unverified 11/30/18 11:45 Home Medications Home Medications Medication Instructions Recorded Confirmed Type aspirin [Aspir-81] 81 mg PO DAILY 11/30/18 11/30/18 History linagliptin 5 mg PO DAILY 11/30/18 11/30/18 History lisinopril 10 mg PO DAILY 11/30/18 11/30/18 History metformin 1,000 mg PO BID 11/30/18 11/30/18 History metoprolol succinate 25 mg PO DAILY 11/30/18 11/30/18 History Patient History Surgical History History of quadruple bypass (Acute) Family History Grandfather Myocardial infarction Father TIA (transient ischemic attack) 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 Beliefs That Will Affect Care: None Current Living Situation: Significant Other Feels Safe at Home: Yes Smoking Status: Former smoker Hx Alcohol Use: Yes Hx Substance Use: No Review of Systems Review of Systems: All systems reviewed & are unremarkable except as noted in HPI & below Physical Exam Constitutional: WD/WN, vitals as above Neck: trachea midline, no thyromegaly Respiratory: normal respiratory effort, lungs clear to auscultation Cardiovascular: RRR, no murmur, no edema Gastrointestinal (Abdomen): normal bowel sounds, soft, nontender, no hepatosplenomegaly Skin: no rashes, warm and dry Psychiatric: A+Ox3, euthymic affect Results & Data Vital Signs (Past 12 Hours) Vital Signs Temp Pulse Pulse Resp BP BP Pulse Ox 12/01/18 11:48 91/53 L 12/01/18 11:44 36.6 C 76 18 87/53 L 97 12/01/18 08:12 36.7 C 76 16 96/50 L 98 12/01/18 08:00 81 12/01/18 04:23 36.7 C 79 19 91/52 L 97 PG Care Time/CCT Total # of Minutes Spent Total Time Spent with Patient: Total time spent is greater than 50% in coor dination of care (as documented) at patient's floor/unit and/or counseling patient: (1) GI (gastrointestinal bleed) GI bleed type/associated pathology: melena Qualified Code(s): K92.1 - Melena
[2018-12-01] MEDS ORDERED: PHARMACY GLYCEMIC MGMT CONSULT PRN (15:18)
[2018-12-01] MEDS ORDERED: INSULIN GLARGINE SOLOSTAR 100 UNITS/ML 3 ML PEN SC ONE (16:00)
[2018-12-01] MEDS ORDERED: INSULIN ASPART 100 UNITS/ML 3 ML PEN SC ONE (21:00)
[2018-12-01 23:45] LABS: Hematocrit (blood only) 23.7 % (42-52); Hemoglobin 8.1 g/dL (14.0-18.0)
[2018-12-02] MEDS: SODIUM CHLORIDE 0.45 % 1,000 ML IV SCH ×2 (04:19→12:13)
[2018-12-02] MEDS: INSULIN ASPART 100 UNITS/ML 3 ML PEN SC SCH ×2 (05:48→11:53)
[2018-12-02 06:50] LABS: Hematocrit (blood only) 23.6 % (42-52); Mean Corpuscular Hgb Conc 33.9 g/dL (32-36); Mean Corpuscular Volume 89.4 fL (80-100); Platelet Count 50 K/uL (130-400); RDW Coefficient of Variation 14.4 % (11.5-14.5); RDW Standard Deviation 46.6 fL (36.4-46.3); Red Blood Count 2.64 M/uL (4.7-6.1); White Blood Count 4.36 K/uL (4.8-10.8)
[2018-12-02 06:51] LABS: Albumin Globulin Ratio 0.9 (0.9-2); Albumin Level 2.5 gm/dl (3.4-5.0); BUN Creatinine Ratio 18.3 (10-20); Calcium 7.5 mg/dl (8.5-10.1); Creatinine Clr Calc Pharmacy 98.9 ml/min; Est GFR (African American) 111.6; Est GFR (Non-African American) 96.3; Globulin 2.8 gm/dl (2.5-4.0); Potassium 3.4 mmol/L (3.5-5.1); Total Protein 5.3 gm/dl (6.4-8.2)
--- NOTE | 2018-12-02 07:11 | Family Medicine Progress Note ---
Date of Service December 02, 2018 Assessment & Plan (1) GI (gastrointestinal bleed): 58 yo M with PMH CABGx5, DM, HTN who presented to the ED with complaints of dizzyness, weakness and a recent history of black tarry stools. 1) GIB - EGD this PM: gastritis w/o bleeding, esophageal varices - appreciate GI recommendations - oral pantoprazole 40 BID for gastritis - propranolol 40 BID for varices control - follow up with GI outpatient (2) Hx of CABG: - close monitoring of Hg, transfuse <8 - s/p 1 unit leukoreduced RBCs - consented for all blood products - plt 50 this morning, down from 58 yesterday (3) DM type 2 (diabetes mellitus, type 2): (4) HTN (hypertension): (5) Dizziness: (6) Acute blood loss anemia: Supervising Physician Co-Signing Physician Notes See discharge summary I personally examined the patient and verified all cage points of history and exam, discussed case, and agree with decision making with Dr Fischer. Subjective Pt is going for EGD with GI this AM. Denies any abdominal pain, nausea or vomiting at this time. Took 800 mg of Ibuprofen twice within 4 hours on Sunday to help with knee pain prior to having the episodes of black tarry stools. Has a hx of colonoscopies with polyp removal. Patient is a 58 year old male with PMHx DM2, HTN, and CABG x5 who initially presented to the ED with complaints of profound weakness. He notes that yesterday he was feeling lightheaded, especially after getting out of his car. He had come up from [place] to see the [employer] game and states that while walking from his car to the field he felt weaker and more light headed than he had ever before. He does note having a subjective history of orthostatic hypotension, but has never been formally diagnosed. He also states that yesterday when he had a bowel movement it was dark black stools that he had not noticed in the past. Patient states he was evaluated in the ED and given 1 unit of blood and fluids which he states greatly improved his weakness and lightheadedness. Patient is currently laying comfortable in bed, alert, and asymptomatic. He states that he is feeling significantly better than he did yesterday. Review of Systems Constitutional: + weakness; no fever, no body aches and no fatigue Respiratory: no cough, no dyspnea and no pain on inspiration Cardiovascular: no chest pain, no palpitations and no edema Gastrointestinal: + abdominal pain and + nausea; no vomiting, no cramping, no constipation, no diarrhea/loose stools, no blood in stools and no melena Neurologic: no headache(s) Physical Exam Constitutional: well developed, well nourished, + thin, healthy appearing, cooperative and comfortable; no acute distress Respiratory: normal respiratory effort; no respiratory distress, no retractions and no cough Auscultation: lungs clear to auscultation bilaterally; no crackles, no rales, no rhonchi and no wheezes Cardiovascular: Rate/Rhythm: regular rate and regular rhythm Heart Sounds: normal S1 and normal S2; no abnormal opening sounds, no click, no gallop, no murmur and no cardiac rub Extremities: no calf tenderness and no edema Gastrointestinal (Abdomen): Inspection/Auscultation: abdomen normal to inspection and normal bowel sounds; abdomen not distended and no abdominal edema Percussion/Palpation: abdomen soft; abdomen nontender, no guarding and abdomen not rigid Results & Data Vital Signs (Past 12 Hours) Vital Signs Temp Pulse Pulse Resp BP Pulse Ox 12/02/18 03:16 36.8 C 81 17 101/56 L 96 12/01/18 23:38 36.8 C 81 18 101/57 L 97 12/01/18 22:20 82 12/01/18 19:41 36.8 C 78 18 112/66 98 Laboratory Results WBC 4.36 K/uL (4.8-10.8) L 12/02/18 05:46 RBC 2.64 M/uL (4.7-6.1) L 12/02/18 05:46 Hgb 8.0 g/dL (14.0-18.0) L 12/02/18 05:46 Hct 23.6 % (42-52) L 12/02/18 05:46 MCV 89.4 fL (80-100) 12/02/18 05:46 MCH 30.3 pg (25-34) 12/02/18 05:46 MCHC 33.9 g/dL (32-36) 12/02/18 05:46 RDW Std Deviation 46.6 fL (36.4-46.3) H 12/02/18 05:46 RDW Coeff of Anthony 14.4 % (11.5-14.5) 12/02/18 05:46 Plt Count 50 K/uL (130-400) L 12/02/18 05:46 MPV 12.0 fL (7.4-10.4) H 12/02/18 05:46 Immature Gran % (Auto) 0.0 % 12/02/18 05:46 Neut % (Auto) 64.9 % 12/02/18 05:46 Lymph % (Auto) 20.9 % 12/02/18 05:46 Mcintosh % (Auto) 11.2 % 12/02/18 05:46 Eos % (Auto) 2.5 % 12/02/18 05:46 Baso % (Auto) 0.5 % 12/02/18 05:46 Immature Gran # (Auto) 0.00 K/uL (0.00-0.02) 12/02/18 05:46 Neut # (Auto) 2.83 K/uL (1.4-6.5) 12/02/18 05:46 Lymph # (Auto) 0.91 K/uL (1.2-3.4) L 12/02/18 05:46 Mcintosh # (Auto) 0.49 K/uL (0.11-0.59) 12/02/18 05:46 Eos # (Auto) 0.11 K/uL (0-0.5) 12/02/18 05:46 Baso # (Auto) 0.02 K/uL (0-0.2) 12/02/18 05:46 Platelet Estimate Decreased (Normal) L 11/30/18 11:35 Giant Platelets 1+ 12/02/18 05:46 PT 13.6 Seconds (9.0-12.0) H 11/30/18 12:38 INR 1.4 (0.9-1.1) H 11/30/18 12:38 APTT 25.9 Seconds (21.0-31.0) 11/30/18 12:38 PTT Ratio 1.0 11/30/18 12:38 Sodium 143 mmol/L (136-145) 12/02/18 05:46 Potassium 3.4 mmol/L (3.5-5.1) L 12/02/18 05:46 Chloride 113 mmol/L (98-107) H 12/02/18 05:46 Carbon Dioxide 21 mmol/L (21-32) 12/02/18 05:46 Anion Gap 9.0 (3-11) 12/02/18 05:46 BUN 15 mg/dl (7-18) D 12/02/18 05:46 Creatinine 0.83 mg/dl (0.6-1.4) 12/02/18 05:46 Est Cr Clr Drug Dosing 98.9 ml/min 12/02/18 05:46 Est GFR ( Amer) 111.6 12/02/18 05:46 Est GFR (Non-Af Amer) 96.3 12/02/18 05:46 BUN/Creatinine Ratio 18.3 (10-20) 12/02/18 05:46 Glucose 122 mg/dl (70-99) H 12/02/18 05:46 POC Glucose 155 (70-99) H 12/02/18 11:36 Estimat Average Glucose 174 mg/dl 12/01/18 06:13 Hemoglobin A1c 7.7 % (4.5-5.6) H 12/01/18 06:13 Calcium 7.5 mg/dl (8.5-10.1) L 12/02/18 05:46 Phosphorus 2.4 mg/dl (2.5-4.9) L 12/01/18 06:13 Magnesium 1.6 mg/dl (1.8-2.4) L 12/02/18 05:45 Total Bilirubin 1.0 mg/dl (0.2-1) 12/02/18 05:46 AST 45 U/L (15-37) H 12/02/18 05:46 ALT 18 U/L (12-78) 12/02/18 05:46 Alkaline Phosphatase 86 U/L (45-117) 12/02/18 05:46 Troponin I < 0.015 ng/ml (0-0.045) 11/30/18 11:35 Total Protein 5.3 gm/dl (6.4-8.2) L 12/02/18 05:46 Albumin 2.5 gm/dl (3.4-5.0) L 12/02/18 05:46 Globulin 2.8 gm/dl (2.5-4.0) 12/02/18 05:46 Albumin/Globulin Ratio 0.9 (0.9-2) 12/02/18 05:46 TSH 1.560 uIu/ml (0.300-4.500) 11/30/18 11:35 Urine Color Yellow 11/30/18 20:00 Urine Appearance Clear (Clear) 11/30/18 20:00 Urine pH 5.5 (4.5-7.5) 11/30/18 20:00 Ur Specific [place] 1.023 (1.000-1.030) 11/30/18 20:00 Urine Protein Negative (Negative) 11/30/18 20:00 Urine Glucose (UA) 3+ (Negative) H 11/30/18 20:00 Urine Ketones Trace (Negative) H 11/30/18 20:00 Urine Blood Negative (Negative) 11/30/18 20:00 Urine Nitrite Negative (Negative) 11/30/18 20:00 Urine Bilirubin Negative (Negative) 11/30/18 20:00 Urine Urobilinogen Negative (Negative) 11/30/18 20:00 Ur Leukocyte Esterase Negative (Negative) 11/30/18 20:00 Ethyl Alcohol mg/dL < 3.0 mg/dl (0-3) 11/30/18 11:49 Blood Type O Positive 11/30/18 11:40 Blood Type Recheck O Positive 11/30/18 14:07 Antibody Screen NEGATIVE 11/30/18 11:40 Crossmatch See Detail 11/30/18 11:40 PG Care Time/CCT Total # of Minutes Spent Total Time Spent with Patient: Total time spent is greater than 50% in coordination of care (as documented) at patient's floor/unit and/or counseling patient: Resident Activity Tracking Resident Involvement: Resident Care Provided Care Provided: Adult Hospital Medicine (1) GI (gastrointestinal bleed) GI bleed type/associated pathology: melena Qualified Code(s): K92.1 - Melena (2) DM type 2 (diabetes mellitus, type 2) Diabetes mellitus complication status: without complication Diabetes mellitus longterm insulin use: without harness inspector use Qualified Code(s): E11.9 - Type 2 diabetes mellitus without complications
[2018-12-02 07:13] LABS: Estimated Average Glucose 174 mg/dl; Hemoglobin A1C 7.7 % (4.5-5.6)
[2018-12-02 07:35] LABS: Basophils # (auto) 0.02 K/uL (0-0.2); Basophils % (auto) 0.5 %; Eosinophils # (auto) 0.11 K/uL (0-0.5); Eosinophils % (auto) 2.5 %; Giant Platelets 1+; Lymphocytes # (auto) 0.91 K/uL (1.2-3.4); Lymphocytes % (auto) 20.9 %; Monocytes # (auto) 0.49 K/uL (0.11-0.59); Monocytes % (auto) 11.2 %; Neutrophils # (auto) 2.83 K/uL (1.4-6.5); Neutrophils % (auto) 64.9 %
[2018-12-02] MEDS: PANTOprazole 40 MG in SYRINGE 0 ML IV SCH (08:45)
--- NOTE | 2018-12-02 09:51 | History & Physical Bridge Note ---
Date of Service December 02, 2018 History & Physical Bridge Note I have examined the patient, reviewed the History & Physical and in the interval since the performance of the History & Physical I have noted the following changes of clinical significance: denies any chest pain, palpitations, shortness of breath, abdominal pain or overt GIB symptoms this morning. PE: General: A&Ox3. Cardiovascular: RRR with S3. No murmurs, rubs or gallops. Pulmonary: Lungs CTA bilaterally. Gastrointestinal: Abdomen soft, non-tender. Normal bowel sounds. Nondistended. Musculoskeletal: No lower extremity edema. A/P: NPO for EGD with Dr. Rudolph today. Additional recommendations pending results of testing. Supervising Physician Co-Signing Physician Notes Agree with BOB Carr as above Abd: Soft, NT, ND, +BS Continue current therapy Proceed with EGD
--- NOTE | 2018-12-02 13:05 | Anesthesiology Consultation ---
Date of Service December 02, 2018 Assessment & Plan (1) Encounter for pre-operative examination: Chart Review Chart Review: Acceptable Risk for Surgery History Surgery Operation Date: 12/02/18 09:15 Proposed Procedures p Esophagogastroduodenoscopy Dr Rudolph - Enoc Rudolph DO Height/Weight Height: 5 ft 10 in Weight: 76.6 kg Allergies Allergy/AdvReac Type Severity Reaction Status Date / Time No Known Allergies Allergy Unverified 11/30/18 11:45 Medications Home Medications Medication Instructions Recorded Confirmed Last Taken aspirin [Aspir-81] 81 mg PO DAILY 11/30/18 11/30/18 11/30/18 linagliptin 5 mg PO DAILY 11/30/18 11/30/18 11/30/18 lisinopril 10 mg PO DAILY 11/30/18 11/30/18 11/30/18 metformin 1,000 mg PO BID 11/30/18 11/30/18 11/30/18 metoprolol succinate 25 mg PO DAILY 11/30/18 11/30/18 11/30/18 Active Medications Generic Name Dose Route Start Last Admin Trade Name Freq PRN Reason Stop Dose Admin Sodium Chloride 1,000 mls @ 120 mls/hr 11/30/18 15:30 12/02/18 12:13 1/2 Nss IV 12/30/18 15:29 120 mls/hr .[id number] JAXSON Administration Pantoprazole Sodium 40 mg/ 10 mls @ 5 mls/min 11/30/18 21:00 12/02/18 08:45 Syringe IV 12/30/18 20:59 5 mls/min BID@0900,2100 JAXSON Administration Insulin Aspart 0 units 11/30/18 18:00 12/02/18 11:53 Novolog Flexpen SC 12/30/18 17:59 Not Given Q6 JAXSON Protocol Past Medical History Medical History Anemia received 1 unit prbc's CAD (coronary artery disease) Diabetes mellitus GI bleed Hypertension Thrombocytopenia Past Family History Family History Grandfather Myocardial infarction Father TIA (transient ischemic attack) Past Surgical History Surgical History History of quadruple bypass (Acute) Hx of CABG Social History Smoking Status: Former smoker Hx Alcohol Use: Yes alcohol intake frequency: holidays/special occasions only Hx Substance Use: No Physical Exam Vital Signs Last Vital Signs Temp 36.7 C 12/02/18 11:38 Pulse 73 12/02/18 11:38 Resp 18 12/02/18 11:38 BP 107/64 12/02/18 11:38 Pulse Ox 97 12/02/18 11:38 Testing Laboratory Results 12/02/18 05:46 12/02/18 05:46 PT 13.6 Seconds (9.0-12.0) H 11/30/18 12:38 INR 1.4 (0.9-1.1) H 11/30/18 12:38 APTT 25.9 Seconds (21.0-31.0) 11/30/18 12:38 Hemoglobin A1c 7.7 % (4.5-5.6) H 12/01/18 06:13 Urine Color Yellow 11/30/18 20:00 Urine Appearance Clear (Clear) 11/30/18 20:00 Urine pH 5.5 (4.5-7.5) 11/30/18 20:00 Ur Specific [place] 1.023 (1.000-1.030) 11/30/18 20:00 Urine Protein Negative (Negative) 11/30/18 20:00 Urine Glucose (UA) 3+ (Negative) H 11/30/18 20:00 Urine Ketones Trace (Negative) H 11/30/18 20:00 Urine Nitrite Negative (Negative) 11/30/18 20:00 Ur Leukocyte Esterase Negative (Negative) 11/30/18 20:00 Blood Type O Positive 11/30/18 11:40 Antibody Screen NEGATIVE 11/30/18 11:40 12/02/18 12/02/18 11:36 05:47 POC Glucose 155 H 123 H Electrocardiogram Date: 11/30/18 Findings: + NSR @ (87) Chest X-Ray Date: 11/30/18 Findings: + NAD
--- NOTE | 2018-12-02 16:06 | Pharmacy Report ---
Glycemic Control Progress Note - Date of Service December 02, 2018 - Scope Glycemic Pharmacist consulted for glycemic control to write orders per [facility] inpatient glycemic control protocol. - Objective Accuchecks BSG(last 24 hours):: 12/01/18 12/01/18 12/01/18 16:30 21:09 23:37 Glucose POC Glucose 270 H 174 H 132 H 12/02/18 12/02/18 12/02/18 05:46 05:47 11:36 Glucose 122 H POC Glucose 123 H 155 H HbA1c:: Hemoglobin A1c 7.7 % (4.5-5.6) H 12/01/18 06:13 - Recent Pertinent Medications The patient is currently receiving: * Basal insulin: Lantus 12 units x1 * Correctional Insulin: Novolog Correction per scale ACHS Goal Range: Low 120 mg/dL - High 160 mg/dL Correction Factor: 30 mg/dL/unit * Prandial insulin: Per carb ratio of 1 unit per 10 grams CHO consumed * Oral Agents: - Assessment & Plan ASSESSMENT: * Mr. Willis's BSGs have been controlled today while NPO, received 12 units of lantus last evening, will set scale for this evening * Changes needed to insulin regimen: * AM Fasting BSG = 123 mg/dl. This is in slightly within goal range for patient based on inpatient targets and co-morbidities. * Post-prandial BSGs are in range today therefore no changes needed to CF/CR for now although patient remains NPO for EGD PLAN FOR INPATIENT GLYCEMIC CONTROL: * Oral Agents * Continue to hold outpatient oral diabetes medications. * Basal insulin * Lantus 7/12 units * Bolus insulin * NovoLog per scale ACHS or Q6hrs while NPO * Goal Range: Low 120 mg/dL - High 160 mg/dL * Correction Factor: 30 mg/dL/unit * Nutritional / Prandial insulin per carb ratio of 1 unit per 10 grams CHO consumed * Please note that the plan above was derived based on current level of insulin resistance and hospital stress. These recommendations are appropriate for inpatient admission only. Plan of care upon discharge will need to be reassessed to avoid potential outpatient hypo/hyperglycemia. Thank you.
[2018-12-02] MEDS ORDERED: LIDOCAINE HCL 2% 2 ML VIAL/AMP(20MG/ML) INFIL ONE (16:45)
[2018-12-02] MEDS ORDERED: ONDANSETRON INJ 2 MG/ML 2 ML VIAL ONE (16:45)
[2018-12-02] MEDS ORDERED: GLYCOPYRROLATE 0.2 MG/ML VIAL ONE (16:45)
[2018-12-02] MEDS ORDERED: PROPOFOL IV EMULSION 10 MG/ML 20 ML VIAL IV ONE (16:45)
--- NOTE | 2018-12-02 17:09 | GI REPORT ---
Patient Name: Kyle Willis Procedure Date: 12/02/2018 4:27 PM Date of : 1960 Admit Type: Inpatient Age: 58 Gender: Male Attending MD: Enoc Rudolph DO Procedure: Upper GI endoscopy Providers: Enoc Rudolph DO Referring MD: Sebastián Collier Indications: Iron deficiency anemia, Melena Medicines: Monitored Anesthesia Care Complications: No immediate complications. Estimated Blood Loss: Estimated blood loss: none. Procedure: Pre-Anesthesia Assessment: - Prior to the procedure, a History and Physical was performed, and patient medications and allergies were reviewed. The patient's tolerance of previous anesthesia was also reviewed. The risks and benefits of the procedure and the sedation options and risks were discussed with the patient. All questions were answered, and informed consent was obtained. Prior Anticoagulants: The patient has taken aspirin, last dose was 2 days prior to procedure. ASA Grade Assessment: III - A patient with severe systemic disease. After reviewing the risks and benefits, the patient was deemed in satisfactory condition to undergo the procedure. After obtaining informed consent, the endoscope was passed under direct vision. Throughout the procedure, the patient's blood pressure, pulse, and oxygen saturations were monitored continuously. The scope was introduced through the mouth, and advanced to the second part of duodenum. The upper GI endoscopy was accomplished without difficulty. The patient tolerated the procedure well. Findings: Grade II varices were found in the middle third of the esophagus and in the lower third of the esophagus. They were 4 mm in largest diameter. Localized mild inflammation characterized by erythema and friability was found in the entire examined stomach. The examined duodenum was normal. Impression: - Grade II esophageal varices. - Gastritis. - Normal examined duodenum. - No specimens collected. Recommendation: - [facility]. - Advance diet as tolerated. - Give a non-selective beta priscila (Corgard) with dosage titrated by the heart rate. - Discussed case with Dr. Collier. Patient will need extensive workup for liver disease as outpatient to include RUQ US, Lab studies, and followup for Esophageal varices and titration of non-selective beta priscila. -Patient resides in [place], [place], and will proceed with workup at home. Enoc Rudolph DO 12/02/2018 5:09:30 PM This report has been signed electronically. Note Initiated On: 12/02/2018 4:27 PM Number of Addenda: 0 I attest to the content of the Intraoperative Record and orders documented therein, exceptions below {[id number]}
--- NOTE | 2018-12-02 17:18 | Anesthesiology Progress Note ---
Date of Service December 02, 2018 Anesthesia Post Procedure Vital Signs Vital Signs: Temp Pulse Pulse Pulse Pulse Resp BP 12/02/18 17:15 85 16 12/02/18 17:00 37.0 C 100 H 16 12/02/18 15:55 37.0 C 76 16 12/02/18 15:53 36.5 C 78 20 121/66 12/02/18 15:13 69 12/02/18 11:38 36.7 C 73 18 107/64 12/02/18 08:00 76 12/02/18 07:38 36.6 C 73 18 12/02/18 07:33 36.9 C 79 19 12/02/18 03:16 36.8 C 81 17 12/01/18 23:38 36.8 C 81 18 12/01/18 22:20 82 12/01/18 19:41 36.8 C 78 18 BP Pulse Ox 12/02/18 17:15 114/71 98 12/02/18 17:00 107/61 98 12/02/18 15:55 123/72 98 12/02/18 15:53 97 12/02/18 15:13 12/02/18 11:38 97 12/02/18 08:00 12/02/18 07:38 95/54 L 97 12/02/18 07:33 167/88 H 96 12/02/18 03:16 101/56 L 96 12/01/18 23:38 101/57 L 97 12/01/18 22:20 12/01/18 19:41 112/66 98 Transfer of Care Handoff Completed per policy Notes Mental Status: alert / awake / arousable and participated in evaluation Patient Amnestic to Procedure: Yes Nausea / Vomiting: adequately controlled Pain: adequately controlled Airway Patency, RR, SpO2: stable & adequate BP & HR: stable & adequate Hydration State: stable & adequate Anesthetic Complications: no major complications apparent
[2018-12-02] MEDS ORDERED: Nursing to Pharmacy Communication ONE (17:40)
--- NOTE | 2018-12-02 19:09 | Discharge Summary ---
Date of Service December 02, 2018 Admission HPI Per Admitting Provider 58 y/o M c/o weakness. Pt states that he was weak and lightheaded yesterday a few times, but it resolved. He also had a few episodes of n/v yesterday. He came to [employer] today for the [employer] game. As they were walking into the field he suddenly felt much more weak and lightheaded and states that the grass "turned orange". He could not keep his head up and could not continue walking. When this did not clear, he came to the ED. Pt states he had a bowel movement yesterday and today with dark black stools. He had no noticed this prior. It was a regular, formed stool. No diarrha. He has not had abd pain, but he does feel bloated today. He states that his abd is usually fairly flat. He has no prior hx of similar sx. No BRBPR or in his emesis yesterday.Pt denies fever, SOB, chest pain, LE pain or swelling. Pt takes aspirin 81mg regularly due to hx of CABG 5 yrs ago. He states he did hold this a few weeks ago due to recurring nosebleeds and had just restarted this recently after the nosebleeds resolved. No unusual bruising or bleeding otherwise. Pt states he does feel a bit improved s/p IVF and protonix, Mg in the ED. He is awaiting PRBC transfusion. Pt states he has had 2-3 c-scopes. He was noted to have polyps on his initial c- scope and so has had an increased interval for screening. No dx of cancer. His last one was roughly 2 years ago. He is from [place] and states that he had these done as some sort of outpt surgical center that also does plastic surgery, but that his most recent was at the hospital. Principal Diagnosis GI bleeding related to gastritis Esophageal varices Discharge Exam General he is awake and alert pleasant no distress. HEENT normocephalic atraumatic mucous members are moist. Breathing unlabored no accessory muscle use good effort. Skin shows no rashes no pallor or icterus. Neuro shows no focal deficits. Discharge Data Allergies Allergy/AdvReac Type Severity Reaction Status Date / Time No Known Allergies Allergy Unverified 11/30/18 11:45 Consultations 11/30/18 12:46 ED Decision to Admit Stat 11/30/18 15:12 Consult Gastroenterology Routine Consult Health Information Management Stat Procedures Performed Operation Date: 12/02/18 09:15 Actual Procedures p Esophagogastroduodenoscopy - Enoc Rudolph DO Patient Name: Kyle Willis Procedure Date: 12/02/2018 4:27 PM Date of : 1960 Admit Type: Inpatient Age: 58 Gender: Male Attending MD: Enoc Rudolph DO Procedure: Upper GI endoscopy Providers: Enoc Rudolph DO Referring MD: Sebastián Collier Indications: Iron deficiency anemia, Melena Medicines: Monitored Anesthesia Care Complications: No immediate complications. Estimated Blood Loss: Estimated blood loss: none. Procedure: Pre-Anesthesia Assessment: - Prior to the procedure, a History and Physical was performed, and patient medications and allergies were reviewed. The patient's tolerance of previous anesthesia was also reviewed. The risks and benefits of the procedure and the sedation options and risks were discussed with the patient. All questions were answered, and informed consent was obtained. Prior Anticoagulants: The patient has taken aspirin, last dose was 2 days prior to procedure. ASA Grade Assessment: III - A patient with severe systemic disease. After reviewing the risks and benefits, the patient was deemed in satisfactory condition to undergo the procedure. After obtaining informed consent, the endoscope was passed under direct vision. Throughout the procedure, the patient's blood pressure, pulse, and oxygen saturations were monitored continuously. The scope was introduced through the mouth, and advanced to the second part of duodenum. The upper GI endoscopy was accomplished without difficulty. The patient tolerated the procedure well. Findings: Grade II varices were found in the middle third of the esophagus and in the lower third of the esophagus. They were 4 mm in largest diameter. Localized mild inflammation characterized by erythema and friability was found in the entire examined stomach. The examined duodenum was normal. Impression: - Grade II esophageal varices. - Gastritis. - Normal examined duodenum. - No specimens collected. Recommendation: - [facility]. - Advance diet as tolerated. - Give a non-selective beta priscila (Corgard) with dosage titrated by the heart rate. - Discussed case with Dr. Collier. Patient will need extensive workup for liver disease as outpatient to include RUQ US, Lab studies, and followup for Esophageal varices and titration of non-selective beta priscila. -Patient resides in [place], [place], and will proceed with workup at home. Enoc Rudolph, DO Lab Results 11/30/18 11/30/18 11/30/18 Range/Units 11:35 11:35 11:35 WBC 7.95 (4.8-10.8) K/uL RBC 2.51 L (4.7-6.1) M/uL Hgb 7.7 L (14.0-18.0) g/dL Hct 23.5 L (42-52) % MCV 93.6 (80-100) fL MCH 30.7 (25-34) pg MCHC 32.8 (32-36) g/dL RDW Std Deviation 46.2 (36.4-46.3) fL RDW Coeff of Anthony 13.5 (11.5-14.5) % Plt Count 76 L (130-400) K/uL MPV 12.9 H (7.4-10.4) fL Immature Gran % (Auto) 0.3 % Neut % (Auto) 71.8 % Lymph % (Auto) 17.0 % [place] % (Auto) 9.9 % Eos % (Auto) 0.6 % Baso % (Auto) 0.4 % Immature Gran # (Auto) 0.02 (0.00-0.02) K/uL Neut # (Auto) 5.71 (1.4-6.5) K/uL Lymph # (Auto) 1.35 (1.2-3.4) K/uL [place] # (Auto) 0.79 H (0.11-0.59) K/uL Eos # (Auto) 0.05 (0-0.5) K/uL Baso # (Auto) 0.03 (0-0.2) K/uL Platelet Estimate Decreased L (Normal) Giant Platelets PT Cancelled INR Cancelled APTT Cancelled PTT Ratio Cancelled Sodium 143 (136-145) mmol/L Potassium 4.1 (3.5-5.1) mmol/L Chloride 110 H (98-107) mmol/L Carbon Dioxide 22 (21-32) mmol/L Anion Gap 11.0 (3-11) BUN 59 H (7-18) mg/dl Creatinine 1.21 (0.6-1.4) mg/dl Est Cr Clr Drug Dosing 67.9 ml/min Est GFR ( Amer) 75.5 Est GFR (Non-Af Amer) 65.1 BUN/Creatinine Ratio 48.7 H (10-20) Glucose 283 H (70-99) mg/dl POC Glucose (70-99) Estimat Average Glucose mg/dl Hemoglobin A1c (4.5-5.6) % Calcium 8.9 (8.5-10.1) mg/dl Phosphorus (2.5-4.9) mg/dl Magnesium 1.4 L (1.8-2.4) mg/dl Total Bilirubin 0.6 (0.2-1) mg/dl AST 32 (15-37) U/L ALT 16 (12-78) U/L Alkaline Phosphatase 88 (45-117) U/L Troponin I < 0.015 (0-0.045) ng/ml Total Protein 5.9 L (6.4-8.2) gm/dl Albumin 2.6 L (3.4-5.0) gm/dl Globulin 3.2 (2.5-4.0) gm/dl Albumin/Globulin Ratio 0.8 L (0.9-2) TSH 1.560 (0.300-4.500) uIu/ml Urine Color Urine Appearance (Clear) Urine pH (4.5-7.5) Ur Specific [place] (1.000-1.030) Urine Protein (Negative) Urine Glucose (UA) (Negative) Urine Ketones (Negative) Urine Blood (Negative) Urine Nitrite (Negative) Urine Bilirubin (Negative) Urine Urobilinogen (Negative) Ur Leukocyte Esterase (Negative) Ethyl Alcohol mg/dL (0-3) mg/dl Blood Type Blood Type Recheck Antibody Screen Crossmatch 11/30/18 11/30/18 11/30/18 Range/Units 11:40 11:49 12:38 WBC (4.8-10.8) K/uL RBC (4.7-6.1) M/uL Hgb (14.0-18.0) g/dL Hct (42-52) % MCV (80-100) fL MCH (25-34) pg MCHC (32-36) g/dL RDW Std Deviation (36.4-46.3) fL RDW Coeff of Anthony (11.5-14.5) % Plt Count (130-400) K/uL MPV (7.4-10.4) fL Immature Gran % (Auto) % Neut % (Auto) % Lymph % (Auto) % [place] % (Auto) % Eos % (Auto) % Baso % (Auto) % Immature Gran # (Auto) (0.00-0.02) K/uL Neut # (Auto) (1.4-6.5) K/uL Lymph # (Auto) (1.2-3.4) K/uL [place] # (Auto) (0.11-0.59) K/uL Eos # (Auto) (0-0.5) K/uL Baso # (Auto) (0-0.2) K/uL Platelet Estimate (Normal) Giant Platelets PT 13.6 H INR 1.4 H APTT 25.9 PTT Ratio 1.0 Sodium (136-145) mmol/L Potassium (3.5-5.1) mmol/L Chloride (98-107) mmol/L Carbon Dioxide (21-32) mmol/L Anion Gap (3-11) BUN (7-18) mg/dl Creatinine (0.6-1.4) mg/dl Est Cr Clr Drug Dosing ml/min Est GFR ( Amer) Est GFR (Non-Af Amer) BUN/Creatinine Ratio (10-20) Glucose (70-99) mg/dl POC Glucose (70-99) Estimat Average Glucose mg/dl Hemoglobin A1c (4.5-5.6) % Calcium (8.5-10.1) mg/dl Phosphorus (2.5-4.9) mg/dl Magnesium (1.8-2.4) mg/dl Total Bilirubin (0.2-1) mg/dl AST (15-37) U/L ALT (12-78) U/L Alkaline Phosphatase (45-117) U/L Troponin I (0-0.045) ng/ml Total Protein (6.4-8.2) gm/dl Albumin (3.4-5.0) gm/dl Globulin (2.5-4.0) gm/dl Albumin/Globulin Ratio (0.9-2) TSH (0.300-4.500) uIu/ml Urine Color Urine Appearance (Clear) Urine pH (4.5-7.5) Ur Specific [place] (1.000-1.030) Urine Protein (Negative) Urine Glucose (UA) (Negative) Urine Ketones (Negative) Urine Blood (Negative) Urine Nitrite (Negative) Urine Bilirubin (Negative) Urine Urobilinogen (Negative) Ur Leukocyte Esterase (Negative) Ethyl Alcohol mg/dL < 3.0 (0-3) mg/dl Blood Type O Positive Blood Type Recheck Antibody Screen NEGATIVE Crossmatch See Detail 11/30/18 11/30/18 11/30/18 Range/Units 14:07 18:01 19:15 WBC (4.8-10.8) K/uL RBC (4.7-6.1) M/uL Hgb 9.2 L (14.0-18.0) g/dL Hct 27.8 L (42-52) % MCV (80-100) fL MCH (25-34) pg MCHC (32-36) g/dL RDW Std Deviation (36.4-46.3) fL RDW Coeff of Anthony (11.5-14.5) % Plt Count (130-400) K/uL MPV (7.4-10.4) fL Immature Gran % (Auto) % Neut % (Auto) % Lymph % (Auto) % [place] % (Auto) % Eos % (Auto) % Baso % (Auto) % Immature Gran # (Auto) (0.00-0.02) K/uL Neut # (Auto) (1.4-6.5) K/uL Lymph # (Auto) (1.2-3.4) K/uL [place] # (Auto) (0.11-0.59) K/uL Eos # (Auto) (0-0.5) K/uL Baso # (Auto) (0-0.2) K/uL Platelet Estimate (Normal) Giant Platelets PT INR APTT PTT Ratio Sodium (136-145) mmol/L Potassium (3.5-5.1) mmol/L Chloride (98-107) mmol/L Carbon Dioxide (21-32) mmol/L Anion Gap (3-11) BUN (7-18) mg/dl Creatinine (0.6-1.4) mg/dl Est Cr Clr Drug Dosing ml/min Est GFR ( Amer) Est GFR (Non-Af Amer) BUN/Creatinine Ratio (10-20) Glucose (70-99) mg/dl POC Glucose 232 H (70-99) Estimat Average Glucose mg/dl Hemoglobin A1c (4.5-5.6) % Calcium (8.5-10.1) mg/dl Phosphorus (2.5-4.9) mg/dl Magnesium (1.8-2.4) mg/dl Total Bilirubin (0.2-1) mg/dl AST (15-37) U/L ALT (12-78) U/L Alkaline Phosphatase (45-117) U/L Troponin I (0-0.045) ng/ml Total Protein (6.4-8.2) gm/dl Albumin (3.4-5.0) gm/dl Globulin (2.5-4.0) gm/dl Albumin/Globulin Ratio (0.9-2) TSH (0.300-4.500) uIu/ml Urine Color Urine Appearance (Clear) Urine pH (4.5-7.5) Ur Specific [place] (1.000-1.030) Urine Protein (Negative) Urine Glucose (UA) (Negative) Urine Ketones (Negative) Urine Blood (Negative) Urine Nitrite (Negative) Urine Bilirubin (Negative) Urine Urobilinogen (Negative) Ur Leukocyte Esterase (Negative) Ethyl Alcohol mg/dL (0-3) mg/dl Blood Type Blood Type Recheck O Positive Antibody Screen Crossmatch 11/30/18 12/01/18 12/01/18 Range/Units 20:00 00:40 06:05 WBC (4.8-10.8) K/uL RBC (4.7-6.1) M/uL Hgb (14.0-18.0) g/dL Hct (42-52) % MCV (80-100) fL MCH (25-34) pg MCHC (32-36) g/dL RDW Std Deviation (36.4-46.3) fL RDW Coeff of Anthony (11.5-14.5) % Plt Count (130-400) K/uL MPV (7.4-10.4) fL Immature Gran % (Auto) % Neut % (Auto) % Lymph % (Auto) % [place] % (Auto) % Eos % (Auto) % Baso % (Auto) % Immature Gran # (Auto) (0.00-0.02) K/uL Neut # (Auto) (1.4-6.5) K/uL Lymph # (Auto) (1.2-3.4) K/uL [place] # (Auto) (0.11-0.59) K/uL Eos # (Auto) (0-0.5) K/uL Baso # (Auto) (0-0.2) K/uL Platelet Estimate (Normal) Giant Platelets PT INR APTT PTT Ratio Sodium (136-145) mmol/L Potassium (3.5-5.1) mmol/L Chloride (98-107) mmol/L Carbon Dioxide (21-32) mmol/L Anion Gap (3-11) BUN (7-18) mg/dl Creatinine (0.6-1.4) mg/dl Est Cr Clr Drug Dosing ml/min Est GFR ( Amer) Est GFR (Non-Af Amer) BUN/Creatinine Ratio (10-20) Glucose (70-99) mg/dl POC Glucose 142 H 129 H (70-99) Estimat Average Glucose mg/dl Hemoglobin A1c (4.5-5.6) % Calcium (8.5-10.1) mg/dl Phosphorus (2.5-4.9) mg/dl Magnesium (1.8-2.4) mg/dl Total Bilirubin (0.2-1) mg/dl AST (15-37) U/L ALT (12-78) U/L Alkaline Phosphatase (45-117) U/L Troponin I (0-0.045) ng/ml Total Protein (6.4-8.2) gm/dl Albumin (3.4-5.0) gm/dl Globulin (2.5-4.0) gm/dl Albumin/Globulin Ratio (0.9-2) TSH (0.300-4.500) uIu/ml Urine Color Yellow Urine Appearance Clear (Clear) Urine pH 5.5 (4.5-7.5) Ur Specific [place] 1.023 (1.000-1.030) Urine Protein Negative (Negative) Urine Glucose (UA) 3+ H (Negative) Urine Ketones Trace H (Negative) Urine Blood Negative (Negative) Urine Nitrite Negative (Negative) Urine Bilirubin Negative (Negative) Urine Urobilinogen Negative (Negative) Ur Leukocyte Esterase Negative (Negative) Ethyl Alcohol mg/dL (0-3) mg/dl Blood Type Blood Type Recheck Antibody Screen Crossmatch 12/01/18 12/01/18 12/01/18 Range/Units 06:13 06:13 06:13 WBC 5.74 (4.8-10.8) K/uL RBC 2.62 L (4.7-6.1) M/uL Hgb 7.9 L (14.0-18.0) g/dL Hct 23.4 L (42-52) % MCV 89.3 (80-100) fL MCH 30.2 (25-34) pg MCHC 33.8 (32-36) g/dL RDW Std Deviation 48.4 H (36.4-46.3) fL RDW Coeff of Anthony 14.8 H (11.5-14.5) % Plt Count 58 L (130-400) K/uL MPV 12.3 H (7.4-10.4) fL Immature Gran % (Auto) 0.2 % Neut % (Auto) 61.9 % Lymph % (Auto) 25.4 % [place] % (Auto) 9.8 % Eos % (Auto) 2.4 % Baso % (Auto) 0.3 % Immature Gran # (Auto) 0.01 (0.00-0.02) K/uL Neut # (Auto) 3.55 (1.4-6.5) K/uL Lymph # (Auto) 1.46 (1.2-3.4) K/uL [place] # (Auto) 0.56 (0.11-0.59) K/uL Eos # (Auto) 0.14 (0-0.5) K/uL Baso # (Auto) 0.02 (0-0.2) K/uL Platelet Estimate (Normal) Giant Platelets PT INR APTT PTT Ratio Sodium 145 (136-145) mmol/L Potassium 3.8 (3.5-5.1) mmol/L Chloride 116 H (98-107) mmol/L Carbon Dioxide 20 L (21-32) mmol/L Anion Gap 9.0 (3-11) BUN 34 H (7-18) mg/dl Creatinine 0.87 D (0.6-1.4) mg/dl Est Cr Clr Drug Dosing 94.4 ml/min Est GFR ( Amer) 109.5 Est GFR (Non-Af Amer) 94.5 BUN/Creatinine Ratio 39.2 H (10-20) Glucose 125 H (70-99) mg/dl POC Glucose (70-99) Estimat Average Glucose 174 mg/dl Hemoglobin A1c 7.7 H (4.5-5.6) % Calcium 7.6 L (8.5-10.1) mg/dl Phosphorus 2.4 L (2.5-4.9) mg/dl Magnesium 1.5 L (1.8-2.4) mg/dl Total Bilirubin (0.2-1) mg/dl AST (15-37) U/L ALT (12-78) U/L Alkaline Phosphatase (45-117) U/L Troponin I (0-0.045) ng/ml Total Protein (6.4-8.2) gm/dl Albumin (3.4-5.0) gm/dl Globulin (2.5-4.0) gm/dl Albumin/Globulin Ratio (0.9-2) TSH (0.300-4.500) uIu/ml Urine Color Urine Appearance (Clear) Urine pH (4.5-7.5) Ur Specific [place] (1.000-1.030) Urine Protein (Negative) Urine Glucose (UA) (Negative) Urine Ketones (Negative) Urine Blood (Negative) Urine Nitrite (Negative) Urine Bilirubin (Negative) Urine Urobilinogen (Negative) Ur Leukocyte Esterase (Negative) Ethyl Alcohol mg/dL (0-3) mg/dl Blood Type Blood Type Recheck Antibody Screen Crossmatch 12/01/18 12/01/18 12/01/18 Range/Units 11:42 12:26 16:30 WBC (4.8-10.8) K/uL RBC (4.7-6.1) M/uL Hgb 8.3 L (14.0-18.0) g/dL Hct 24.6 L (42-52) % MCV (80-100) fL MCH (25-34) pg MCHC (32-36) g/dL RDW Std Deviation (36.4-46.3) fL RDW Coeff of Anthony (11.5-14.5) % Plt Count (130-400) K/uL MPV (7.4-10.4) fL Immature Gran % (Auto) % Neut % (Auto) % Lymph % (Auto) % [place] % (Auto) % Eos % (Auto) % Baso % (Auto) % Immature Gran # (Auto) (0.00-0.02) K/uL Neut # (Auto) (1.4-6.5) K/uL Lymph # (Auto) (1.2-3.4) K/uL [place] # (Auto) (0.11-0.59) K/uL Eos # (Auto) (0-0.5) K/uL Baso # (Auto) (0-0.2) K/uL Platelet Estimate (Normal) Giant Platelets PT INR APTT PTT Ratio Sodium (136-145) mmol/L Potassium (3.5-5.1) mmol/L Chloride (98-107) mmol/L Carbon Dioxide (21-32) mmol/L Anion Gap (3-11) BUN (7-18) mg/dl Creatinine (0.6-1.4) mg/dl Est Cr Clr Drug Dosing ml/min Est GFR ( Amer) Est GFR (Non-Af Amer) BUN/Creatinine Ratio (10-20) Glucose (70-99) mg/dl POC Glucose 206 H 270 H (70-99) Estimat Average Glucose mg/dl Hemoglobin A1c (4.5-5.6) % Calcium (8.5-10.1) mg/dl Phosphorus (2.5-4.9) mg/dl Magnesium (1.8-2.4) mg/dl Total Bilirubin (0.2-1) mg/dl AST (15-37) U/L ALT (12-78) U/L Alkaline Phosphatase (45-117) U/L Troponin I (0-0.045) ng/ml Total Protein (6.4-8.2) gm/dl Albumin (3.4-5.0) gm/dl Globulin (2.5-4.0) gm/dl Albumin/Globulin Ratio (0.9-2) TSH (0.300-4.500) uIu/ml Urine Color Urine Appearance (Clear) Urine pH (4.5-7.5) Ur Specific [place] (1.000-1.030) Urine Protein (Negative) Urine Glucose (UA) (Negative) Urine Ketones (Negative) Urine Blood (Negative) Urine Nitrite (Negative) Urine Bilirubin (Negative) Urine Urobilinogen (Negative) Ur Leukocyte Esterase (Negative) Ethyl Alcohol mg/dL (0-3) mg/dl Blood Type Blood Type Recheck Antibody Screen Crossmatch 12/01/18 12/01/18 12/01/18 Range/Units 21:09 23:35 23:37 WBC (4.8-10.8) K/uL RBC (4.7-6.1) M/uL Hgb 8.1 L (14.0-18.0) g/dL Hct 23.7 L (42-52) % MCV (80-100) fL MCH (25-34) pg MCHC (32-36) g/dL RDW Std Deviation (36.4-46.3) fL RDW Coeff of Anthony (11.5-14.5) % Plt Count (130-400) K/uL MPV (7.4-10.4) fL Immature Gran % (Auto) % Neut % (Auto) % Lymph % (Auto) % [place] % (Auto) % Eos % (Auto) % Baso % (Auto) % Immature Gran # (Auto) (0.00-0.02) K/uL Neut # (Auto) (1.4-6.5) K/uL Lymph # (Auto) (1.2-3.4) K/uL [place] # (Auto) (0.11-0.59) K/uL Eos # (Auto) (0-0.5) K/uL Baso # (Auto) (0-0.2) K/uL Platelet Estimate (Normal) Giant Platelets PT INR APTT PTT Ratio Sodium (136-145) mmol/L Potassium (3.5-5.1) mmol/L Chloride (98-107) mmol/L Carbon Dioxide (21-32) mmol/L Anion Gap (3-11) BUN (7-18) mg/dl Creatinine (0.6-1.4) mg/dl Est Cr Clr Drug Dosing ml/min Est GFR ( Amer) Est GFR (Non-Af Amer) BUN/Creatinine Ratio (10-20) Glucose (70-99) mg/dl POC Glucose 174 H 132 H (70-99) Estimat Average Glucose mg/dl Hemoglobin A1c (4.5-5.6) % Calcium (8.5-10.1) mg/dl Phosphorus (2.5-4.9) mg/dl Magnesium (1.8-2.4) mg/dl Total Bilirubin (0.2-1) mg/dl AST (15-37) U/L ALT (12-78) U/L Alkaline Phosphatase (45-117) U/L Troponin I (0-0.045) ng/ml Total Protein (6.4-8.2) gm/dl Albumin (3.4-5.0) gm/dl Globulin (2.5-4.0) gm/dl Albumin/Globulin Ratio (0.9-2) TSH (0.300-4.500) uIu/ml Urine Color Urine Appearance (Clear) Urine pH (4.5-7.5) Ur Specific [place] (1.000-1.030) Urine Protein (Negative) Urine Glucose (UA) (Negative) Urine Ketones (Negative) Urine Blood (Negative) Urine Nitrite (Negative) Urine Bilirubin (Negative) Urine Urobilinogen (Negative) Ur Leukocyte Esterase (Negative) Ethyl Alcohol mg/dL (0-3) mg/dl Blood Type Blood Type Recheck Antibody Screen Crossmatch 12/02/18 12/02/18 12/02/18 Range/Units 05:45 05:46 05:46 WBC 4.36 L (4.8-10.8) K/uL RBC 2.64 L (4.7-6.1) M/uL Hgb 8.0 L (14.0-18.0) g/dL Hct 23.6 L (42-52) % MCV 89.4 (80-100) fL MCH 30.3 (25-34) pg MCHC 33.9 (32-36) g/dL RDW Std Deviation 46.6 H (36.4-46.3) fL RDW Coeff of Anthony 14.4 (11.5-14.5) % Plt Count 50 L (130-400) K/uL MPV 12.0 H (7.4-10.4) fL Immature Gran % (Auto) 0.0 % Neut % (Auto) 64.9 % Lymph % (Auto) 20.9 % [place] % (Auto) 11.2 % Eos % (Auto) 2.5 % Baso % (Auto) 0.5 % Immature Gran # (Auto) 0.00 (0.00-0.02) K/uL Neut # (Auto) 2.83 (1.4-6.5) K/uL Lymph # (Auto) 0.91 L (1.2-3.4) K/uL [place] # (Auto) 0.49 (0.11-0.59) K/uL Eos # (Auto) 0.11 (0-0.5) K/uL Baso # (Auto) 0.02 (0-0.2) K/uL Platelet Estimate (Normal) Giant Platelets 1+ PT INR APTT PTT Ratio Sodium 143 (136-145) mmol/L Potassium 3.4 L (3.5-5.1) mmol/L Chloride 113 H (98-107) mmol/L Carbon Dioxide 21 (21-32) mmol/L Anion Gap 9.0 (3-11) BUN 15 D (7-18) mg/dl Creatinine 0.83 (0.6-1.4) mg/dl Est Cr Clr Drug Dosing 98.9 ml/min Est GFR ( Amer) 111.6 Est GFR (Non-Af Amer) 96.3 BUN/Creatinine Ratio 18.3 (10-20) Glucose 122 H (70-99) mg/dl POC Glucose (70-99) Estimat Average Glucose mg/dl Hemoglobin A1c (4.5-5.6) % Calcium 7.5 L (8.5-10.1) mg/dl Phosphorus (2.5-4.9) mg/dl Magnesium 1.6 L (1.8-2.4) mg/dl Total Bilirubin 1.0 (0.2-1) mg/dl AST 45 H (15-37) U/L ALT 18 (12-78) U/L Alkaline Phosphatase 86 (45-117) U/L Troponin I (0-0.045) ng/ml Total Protein 5.3 L (6.4-8.2) gm/dl Albumin 2.5 L (3.4-5.0) gm/dl Globulin 2.8 (2.5-4.0) gm/dl Albumin/Globulin Ratio 0.9 (0.9-2) TSH (0.300-4.500) uIu/ml Urine Color Urine Appearance (Clear) Urine pH (4.5-7.5) Ur Specific [place] (1.000-1.030) Urine Protein (Negative) Urine Glucose (UA) (Negative) Urine Ketones (Negative) Urine Blood (Negative) Urine Nitrite (Negative) Urine Bilirubin (Negative) Urine Urobilinogen (Negative) Ur Leukocyte Esterase (Negative) Ethyl Alcohol mg/dL (0-3) mg/dl Blood Type Blood Type Recheck Antibody Screen Crossmatch 12/02/18 12/02/18 12/02/18 Range/Units 05:47 11:36 17:51 WBC (4.8-10.8) K/uL RBC (4.7-6.1) M/uL Hgb (14.0-18.0) g/dL Hct (42-52) % MCV (80-100) fL MCH (25-34) pg MCHC (32-36) g/dL RDW Std Deviation (36.4-46.3) fL RDW Coeff of Anthony (11.5-14.5) % Plt Count (130-400) K/uL MPV (7.4-10.4) fL Immature Gran % (Auto) % Neut % (Auto) % Lymph % (Auto) % [place] % (Auto) % Eos % (Auto) % Baso % (Auto) % Immature Gran # (Auto) (0.00-0.02) K/uL Neut # (Auto) (1.4-6.5) K/uL Lymph # (Auto) (1.2-3.4) K/uL [place] # (Auto) (0.11-0.59) K/uL Eos # (Auto) (0-0.5) K/uL Baso # (Auto) (0-0.2) K/uL Platelet Estimate (Normal) Giant Platelets PT INR APTT PTT Ratio Sodium (136-145) mmol/L Potassium (3.5-5.1) mmol/L Chloride (98-107) mmol/L Carbon Dioxide (21-32) mmol/L Anion Gap (3-11) BUN (7-18) mg/dl Creatinine (0.6-1.4) mg/dl Est Cr Clr Drug Dosing ml/min Est GFR ( Amer) Est GFR (Non-Af Amer) BUN/Creatinine Ratio (10-20) Glucose (70-99) mg/dl POC Glucose 123 H 155 H 137 H (70-99) Estimat Average Glucose mg/dl Hemoglobin A1c (4.5-5.6) % Calcium (8.5-10.1) mg/dl Phosphorus (2.5-4.9) mg/dl Magnesium (1.8-2.4) mg/dl Total Bilirubin (0.2-1) mg/dl AST (15-37) U/L ALT (12-78) U/L Alkaline Phosphatase (45-117) U/L Troponin I (0-0.045) ng/ml Total Protein (6.4-8.2) gm/dl Albumin (3.4-5.0) gm/dl Globulin (2.5-4.0) gm/dl Albumin/Globulin Ratio (0.9-2) TSH (0.300-4.500) uIu/ml Urine Color Urine Appearance (Clear) Urine pH (4.5-7.5) Ur Specific [place] (1.000-1.030) Urine Protein (Negative) Urine Glucose (UA) (Negative) Urine Ketones (Negative) Urine Blood (Negative) Urine Nitrite (Negative) Urine Bilirubin (Negative) Urine Urobilinogen (Negative) Ur Leukocyte Esterase (Negative) Ethyl Alcohol mg/dL (0-3) mg/dl Blood Type Blood Type Recheck Antibody Screen Crossmatch Ordered Studies 11/30/18 11:36 CT head/brain wo con Stat 11/30/18 15:12 MR brain wo con Stat Hospital Course (1) Acute blood loss anemia: Appears to be an acute early subacute blood loss anemia related to gastritis. Aspirin was held, and initiated on acid suppression, EGD with above- noted findings. After scope, eating well, no active bleeding, stable for home. Close outpatient follow-up. (2) GI (gastrointestinal bleed): Gastritis related -Most likely alcohol induced, less likely NSAIDs (however his NSAID intake does not seem to be very much) -Protonix twice daily for the short but indefinite future, PCP/GI follow-up to determine when it will be safe to stop -Verbally discussed to hold off on his aspirin until Sunday, then resume -PCP follow-up next week -GI follow-up at home as well (3) Dizziness: Related to anemia, improved (4) Esophageal varices: Concern on underlying cirrhosis. Fortunately clinically stable. Labs as above. We will have the remainder of his work-up as an outpatient. Discussed strict alcohol cessation, and avoidance of other hepatotoxins. Certainly metabolic duress could be at play, although his current A1c suggest this would not be the case given his A1c of 7.7. Initiated propranolol 40 mg twice daily, stop metoprolol. (5) DM type 2 (diabetes mellitus, type 2): A1c 7.7, stable from (6) HTN (hypertension): beta priscila change as above, otherwise continue home meds (7) Hx of CABG: Hold off on aspirin for now, resume on Sunday. Change beta-priscila to nonselective to also help with esophageal varices. Total Time Total Time Spent Total Time Spent (In Minutes): Greater than 30 Discharge Plan Discharge Items Patient Disposition: Home - Home Health Services Reason For Visit: GIB Discharge Diagnosis: gastritis (see below) Activity: Resume your previous activity Non-emergency contact: Primary Care Provider and Service Station Operator Call non-emergency contact if: you have any medication questions Follow-up/Referrals: PCP,NO [Primary Care Provider] - Addtl Attending Provider Instructions: Gastritis -Your gastrointestinal bleeding appeared to have been related to gastritis (gastritis is sort of like a brush burn on the lining of your stomach). This can slowly use blood, and because you did not appear to have suffered from a true hemorrhage, more than likely when he started to feel so weak and lightheaded was simply that you have lost enough blood so as to be the "straw that broke the camel's back" -Fortunately your bleeding appears to have stopped, and your blood counts are now stable -Gastritis usually heals over quite well given time. To accelerate the healing we will have you on an acid suppression medicine (pantoprazole) twice a day for the foreseeable future. Your regular doctors back home will keep an eye on how it appears that you are healing (blood counts, physical exam, symptoms, and possibly a repeat scopesee below) and guide you on when the medicine can be stopped -While anti-inflammatories are a notorious culprit for leading to stomach breakdown like gastritis, it does not sound like you are taking a lot of anti- inflammatories to have led to this problem. Certainly avoid all anti- inflammatories (ibuprofen, Naprosyn, Aleve, Motrin, etc.) but more importantly, your weekend habit of 4-6 beers at a time certainly would be more than enough to cause stomach irritation. Alcohol tends to be fairly dehydrating of the stomach lining, and having that much of a "hit" at once certainly is her most likely culprit. We would simply have you hold off from drinking altogether. This combined with the Protonix (pantoprazole) should help this whole problem heal over and go away. -See your family doctor next week, have them repeat blood counts to ensure your numbers are starting to come up (for reference, while each lab is somewhat different in the fact reading, your hemoglobin is 8.0 right now. 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 They were found incidentally on the upper scope which was used to look for the gastritis, but varicose veins in your esophagus or around your stomach are highly concerning for any type of cirrhosis type liver disease -While uncontrolled metabolic diseases such as diabetes or high triglycerides can lead to liver disease, your A1c (a marker of sugar control) was fairly respectable at 7.7, making diabetes or other metabolic problems less likely to be our culprit for the liver -Having 4-6 beers in any given setting puts a significant strain across her liver, and doing this repeatedly over time certainly would be our most likely culprit and leading to liver disease. -Fortunately, we are seeing this as an incidental finding, rather than having you showing up with the hospital because of liver disease related problems. Because of this, more than likely, as long as he quit drinking altogether, you should be able to avoid progression of the liver disease. -As we discussed, liver is a pretty remarkable organ, and there is even a reasonable chance of improvement in your liver disease with alcohol cessation -We will definitely want you to avoid not only alcohol, but any other liver toxic medsmost notoriously Tylenol (acetaminophen) -We would ask that your primary care doctor to referred to a western philosophy professor, they will guide the evaluation and management further. More than likely will be following lab work, imaging of your liver such as ultrasound, and then quite possibly a repeat scope in the near future as outlined above -We have also initiated a blood pressure medicine called propranolol, this is because propranolol helps dilate those varicose veins around your esophagus and stomach, making the much less likely to bleed. This will replace your metoprolol, as they are both medications in a similar class. The propanolol is slightly more likely than the metoprolol to make you feel lightheaded, weak, or dizzy; but given if tolerated the metoprolol well it is not very likely to do so. Knee arthritis -If your knee is bothering you, rather than taking something that can cause your whole body problems such as ibuprofen, Tylenol, etc., talk with your primary care doc about possibly utilizing a topical anti-inflammatory such as diclofenac gel, which has very little whole body absorption. Pending Studies at Discharge: No Stand-Alone Forms: My [facility] Medications and DC Order Prescriptions: New pantoprazole 40 mg tablet,delayed release (DR/EC) 40 mg PO BID 14 Days Qty: 60 RF: 0 propranolol 40 mg tablet 40 mg PO BID Qty: 60 RF: 0 Continued metformin 500 mg Tablet 1,000 mg PO BID RF: 0 aspirin [Aspir-81] 81 mg Tablet,Delayed Release (Dr/Ec) 81 mg PO DAILY RF: 0 lisinopril 10 mg Tablet 10 mg PO DAILY RF: 0 linagliptin 5 mg Tablet 5 mg PO DAILY RF: 0 Discontinued metoprolol succinate 25 mg Tablet Extended Release 24 Hr 25 mg PO DAILY RF: 0 Discharge Orders: Discharge Order (Routine); Ordered 12/02/18 Ordered By: Sebastián Larios/Other Patient Handouts: Omeprazole Oral capsule gastro-resistant sprinkles, Propranolol Hydrochloride Oral tablet, Bleeding Gastrointestinal, Gastritis Admission Data Admit Date/Time: 11/30/18 14:10 Attending Provider: Sebastián Collier Admit Provider: Maggie Rose Primary Care Provider: PCP,NO Other Providers: Maggie Rose ; Enoc Rudolph ; Charleen Fischer ; Karri Angela Other Interventions: Discharge Summary Assessment (RN) Last Done: 12/02/18 18:28 DC Date/Time DO NOT enter until pt leaves facility: 12/02/18 18:48
[2018-12-02] MEDS ORDERED: INSULIN ASPART 100 UNITS/ML 3 ML PEN SC SCH (21:00)
[2018-12-02] MEDS ORDERED: INSULIN GLARGINE SOLOSTAR 100 UNITS/ML 3 ML PEN SC ONE (21:00)
[2018-12-02] MEDS ORDERED: PANTOprazole 40 MG TAB PO SCH (21:00)
[2018-12-02] MEDS ORDERED: PROPRANOLOL HCL 20 MG TAB PO SCH (21:00)
== END 2018-12-02 18:48 | disposition home or self-care (01) | DRG 378 ==
LOC: ED 11:24 → 2E 14:10 → SUATTDRO 14:10 → 2E 14:42